=== PATIENT | female | born 1955 | race Caucasian/White ===

== ENCOUNTER → 2025-01-29 | Outpatient (CLI) | payer SELFPAY | END | disposition home or self-care (01) | PROVIDERS: Referring Provider Nurse Practitioner Family; Visit Provider Nurse Practitioner Family | DX: Z78.0 Asymptomatic menopausal state (principal) | CPT/HCPCS: 87624; 88175; G0145 ==

== ENCOUNTER → 2025-02-02 | Outpatient (CLI) | payer SELFPAY, OTHER ==
--- NOTE | 2025-02-02 13:35 | US_ITS ---
PROCEDURE: PELVIC W/ TRANSVAGINAL 02/02/2025 REASON FOR EXAM: SURGICAL PLANNING TECHNIQUE: Transabdominal and transvaginal pelvic ultrasound FINDINGS: Transabdominal and transvaginal imaging The uterus measures 6.1 x 5 x 3.1 cm. 0.9 x 1 x 0.9 cm uterine fibroid noted. Endometrial stripe measures 2-4 mm. Cervix appears within limits. The right ovary is not visualized. The left ovary measures 2.5 x 2.7 x 2.4 cm and contains a couple of 3 mm and less echogenic foci possible calcification or fat. No evidence of adnexal mass. No free fluid seen. Bladder volume 72 cc. US/Pelvic w/ Transvaginal IMPRESSION: Small 1 cm uterine fibroid. The right ovary is not identified. Reading Location: [id number]
== END | disposition home or self-care (01) ==
PROVIDERS: Referring Provider Nurse Practitioner Family; Visit Provider Nurse Practitioner Family
DX: N81.4 Uterovaginal prolapse, unspecified (principal)
CPT/HCPCS: 76830; 76856

== ENCOUNTER 2025-09-14 05:16 | Day surgery (SDC) | payer SELFPAY, OTHER ==
--- NOTE | 2025-06-06 08:40 | EKG12_ITS ---
Test Reason : PREOP Blood Pressure : */* mmHG Vent. Rate : 88 BPM Atrial Rate : 88 BPM P-R Int : 148 ms QRS Dur : 80 ms QT Int : 364 ms P-R-T Axes : 19 -39 18 degrees QTcB Int : 440 ms Normal sinus rhythm Left axis deviation Possible Anterior infarct , age undetermined Abnormal ECG Confirmed by Marco Antonio Chowdhury ([id number]), map editor SANDEE CONCEPCION ([id number]) on 06/06/2025 11:30:51 AM Referred By: Kaylah Chris Confirmed By: Marco Antonio Chowdhury
[2025-06-06 09:25] LABS: Hematocrit 42.9 % (37-47); Hemoglobin 14.6 g/dL (12.0-15.0); Mean Corp Hgb Conc 34.0 g/dL (32-36); Mean Corpuscular Volume 89.6 fL (81-99); Mean Platelet Vol. 10.3 fl (6.2-12.0); Platelet Count 325 K/mm3 (150-450); RBC Distribution Width CV 13.0 % (11.6-14.6); RBC Distribution Width SD 43.1 fl (35.1-43.9); Red Blood Count 4.79 M/mm3 (4.2-5.4); White Blood Count 13.9 K/mm3 (4.4-11.0)
[2025-06-06 10:18] LABS: AST(SGOT) 38 U/L (<=31); Alanine Aminotransfer ALT/SGPT 64 U/L (<=34); Albumin, Serum 4.4 g/dL (3.4-4.8); Alkaline Phosphatase 94 U/L (35-104); Anion Gap 10 (5-15); BUN 10 mg/dL (4-19); BUN/Creat Ratio 14.0 RATIO (10-20); Calcium,Total 9.4 mg/dL (7.6-11.0); Carbon Dioxide 25.5 mmol/L (21.0-32.0); Chloride 105 mmol/L (98-108); Globulin 2.3 g/dL (2.2-4.2); Glucose 100 mg/dL (70-99); Potassium 4.1 mmol/L (3.3-5.1)
[2025-06-06 11:41] LABS: Magnesium 2.3 mg/dL (1.5-2.2)
--- NOTE | 2025-06-07 09:47 | PAT.ANESEVAL ---
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 When Was Last Pacemaker Check QUESTION #4 FULL TEXT: You/Your Family Experience fever (hyperthermia) with Anesthesia Last Oral Intake Last Oral intake: Last Oral Intake NPO since Meds taken in AM with sips of water? Meds patient instructed to take am of surgery PONV PONV - owner professional engineer: PONV - owner professional engineer Female Yes 06/01/25 08:44 HX of Motion Sickness No 06/01/25 08:44 HX of N/V After Surgery Yes 06/01/25 08:44 Non-Smoker Yes 06/01/25 08:44 Duration of Surgery greater Yes 06/01/25 08:44 than 60 minutes Number of Risk Factors 4 06/01/25 08:44 PONV Score Severe Risk 06/01/25 08:44 Height & Weight Height & Weight: Anesthesia: Height & Weight Height 5 ft 05/10/25 09:56 Respiratory Assessment Respiratory Assessment - owner professional engineer: Respiratory Tract Infection Hx - owner professional engineer Hx Respiratory Tract Infection No 06/01/25 08:44 STOP Sleep Apnea STOP Sleep Apnea - owner professional engineer: STOP Sleep Apnea - owner professional engineer Hx Hypertension No 06/01/25 08:44 Hx Sleep Apnea No 06/01/25 08:44 CPAP BIPAP Do you snore loudly (louder No 06/01/25 08:44 than talking or can be heard Do you often feel tired/ No 06/01/25 08:44 fatigued/ sleepy during daytime? Has anyone observed you stop No 06/01/25 08:44 breathing during sleep? STOP Results Negative 06/01/25 08:44 QUESTION #5 FULL TEXT : Do you snore loudly (louder than talking or can be heard through closed doors)? 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 Specify any problems Hx of Preganancy in last 3 No 06/01/25 08:44 Months Nurse Filling Out Transfusion [facility] 06/01/25 08:44 & Questions: Date: 06/01/25 06/01/25 08:44 Time: 08:53 06/01/25 08:44 Patient unable to answer at this time (ie. confused, unrespo /Reproduction History /Reproductive History - owner professional engineer: /Reproductive Hx- owner professional engineer Hx Now No 06/01/25 08:44 Gestational Age (in weeks): EDC: Hx Hx Para Hx Section SAB No 05/10/25 09:56 PFSH Medical History Wears glasses Post-menopausal History of ulceration Non-smoker Cholecystitis Home Medications ?Medication ?Instructions ?Recorded ?Last Taken ?Type essential nutrients 2 ea PO DAILY 06/01/25 Unknown History gotu dana (Centella asiatica) 475 70 mg PO DAILY 06/01/25 Unknown History mg capsule hawthorn swift 360 mg capsule 360 mg PO DAILY 06/01/25 Unknown History multivitamin (Daily Multi-Vitamin 3 tab PO DAILY 06/01/25 Unknown History tablet) transfer factor 2 ea PO DAILY 06/01/25 Unknown History Allergy/AdvReac Type Severity Reaction Status Date / Time No Known Allergies Allergy Verified 05/25/25 14:46 Surgical History S/P cholecystectomy Social History adopted: No household members: spouse housing: house number of children: 7 current occupational status: unemployed pets and animals: No history of recent travel: Yes ([place]) out of state: Yes out of country: No sexually active: Yes Smoking Status: Never smoker second hand exposure: No alcohol intake: never substance use type: does not use well-balanced diet: daily or most days caffeine: Yes Type: coffee Number of servings: 2 eating out: 1-3 times/week during the past year weight has: remained stable what type of physical activity do you participate in: none dago/denominational: [facility] seatbelt use: sometimes do you feel safe at home: Yes additional social history: - [employer] Audit: Pertinent Findings Pertinent Findings EKG Perinent findings: 06/06/2025. Normal sinus rhythm. Left axis deviation. Possible anterior infarct, age undetermined. Recommendation Anesthesia Recommendation Anesthesia recommendation: OPTIMIZED for anesthesia
[2025-09-14] VITALS (17 sets, daily range): BP systolic 90–174; BP diastolic 64–94; PULSE 82–98; RESP 14–22; TEMP 36.5–37.2; O2SAT 87–100; BMI 33.6
--- OUTSIDE RECORDS SUMMARY | 2025-09-14 05:20 | XMS RPT_ITS | CCD ---
Author Organization [facility] CliniSyny Care Team Providers Care Shipwright Apprentice Name Role Phone ASHLEY VELASCO Unavailable [facility]IGH [facility] Unavailable Unavailable TOM HUTCHISON, RICKIE Sullivan Unavailable [phone] DANNY RODGERS, DELILAH Unavailable Unavailable LYNNE SUE Unavailable Unavailable Nichole Rodriguez Unavailable Unavailable Unavailable Unavailable Betsy RODGERS, Lexi Unavailable Unavailable Abdelrahman TELEVISION PICTURE TUBE REBUILDER-C, Carlotta Attending Provider Abdelrahman TELEVISION PICTURE TUBE REBUILDER-CCarlotta Referring Provider [phone] Dr. Kaylah Chris DO Attending Provider Care Physician, No Primary Primary Care Provider Unavailable Care Physician, No Primary Referring Provider Un available Dr. Dione Barnes MD Attending Provider [phone] KAMILA MOMIN Unavailable [phone] Nidia CROCKER MD Unavailable ASHLEY VELASCO Unavailable Unav ailable Care Physician, No Primary Primary Care Provider Unavailable Care Physician, No Primary Referring Provider Un available Dr. Kaylah Chris DO Attending Provider Lina Sue Unavailable Unavailable SARAH BETH MCHUGH MD Unavailable Unavail able KAMILA RODRIGUEZ Consulting Unavailable Nidia CROCKER Admitting Unavailable Nidia CROCKER Primary Care Unavailable Nidia CROCKER Attending Unavailable PROVIDER, UNKNOWN Consulting Unavailable PROVIDER, UNKNOWN Consulting Unavailable Nidia CROCKER Admitting Unavailable Nidia CROCKER Primary Care Unavailable Nidia CROCKER Attending Unavailable KAMILA RODRIGUEZ Consulting Unavailable PROVIDER, UNKNOWN Consulting Unavailable PROVIDER, UNKNOWN Consulting Unavailable NOEMI DOTY MD Unavailable Care Physician, No Primary Primary Care Unava ilable Carlotta Quick Attending Unavailable Carlotta Quick Referring Unavailable Carlotta Quick Referring Unavailable Carlotta Quick Attending Unavailable Abdelrahman, Carlotta Attending Unavailable Dione Barnes Attending Unavailable Care Physician, No Primary Referring Unava ilable Care Physician, No Primary Primary Care Unava ilable Dione Barnes Attending Unavailable Care Physician, No Primary Referring Unava ilable Care Physician, No Primary Primary Care Unava ilable Kaylah Chris Attending Unavailabl e Care Physician, No Primary Referring Unava ilable Care Physician, No Primary Primary Care Unava ilable Care Physician, No Primary Primary Care Unava ilable Kaylah Chris Attending Unavailabl e Care Physician, No Primary Referring Unava ilable Care Physician, No Primary Primary Care Unava ilable Kaylah Chris Attending Unavailabl e Kaylah Chris Referring Unavailabl e Medications Current Medications Medication Drug Class(es) Dates Sig (Normalized) Sig (Original) essential nutrients (1 source) Start: 06-01-2025 essential nutrients Active 2 NMA PO DAILY June 01, 2025 12:00am Gotu Dana Extract (1 source) Start: 06-01-2025 take 1 capsule by mouth once daily Gotu Dana (Centella Asiatica) 475 mg capsule Active 70 mg PO DAILY June 01, 2025 12:00am HAWTHORN [place]ST[place] EXTRACT (1 source) Start: 06-01-2025 take 1 capsule by mouth once daily [place] 360 mg capsule Active 360 mg PO DAILY June 01, 2025 12:00am Multivitamin (Daily Multi-Vitamin) tablet (1 source) Start: 06-01-2025 Multivitamin (Daily Multi-Vitamin) tablet Active 3 {tbl} PO DAILY June 01, 2025 12:00am transfer factor (1 source) Start: 06-01-2025 transfer factor Active 2 NMA PO DAILY June 01, 2025 12:00am Completed/Discontinued Medications Medication Drug Class(es) Dates Sig (Normalized) Sig (Original) amoxicillin 500 mg oral tablet (20 sources) Penicillin-class Antibacterial Start: 06-27-2011 End: 07-04-2011 take 1 tablet by mouth three times daily AMOXICILLIN, 500MG (Oral Tablet) ; 1 (one) Tablet three times daily for 7 days Quantity: 21 {Tablet} Refills: 0 Ordered: 29-Jul-2011 MD HAILEE HERNANDEZ Start: 27-Jun-2011 End: 04-Jul-2011 Status: Inactive Comments: meds to be dispensed in office Comment on above: meds to be dispensed in office amoxicillin 875 mg / clavulanate 125 mg oral tablet (20 sources) Penicillin-class Antibacterial Start: 02-16-2024 End: 02-26-2024 amoxicillin 875 mg-potassium clavulanate 125 mg tablet ; 1 (one) tablet two times daily for 10 days Quantity: 20 {Tablet} Refills: 0 Ordered: 01-Mar-2024 FÉLIX MARX Start: 16-Feb-2024 End: 26-Feb-2024 Status: Inactive azithromycin 250 mg oral tablet (20 sources) Macrolide Antimicrobial Start: 09-18-2021 End: 09-23-2021 Azithromycin 250 MG Oral Tablet ; 2 (two) Tablets on day one then 1 daily for 4 days for 5 days Quantity: 6 {Tablet} Refills: 0 Ordered: 16-Feb-2024 FÉLIX MARX Start: 18-Sep-2021 End: 23-Sep-2021 Status: Inactive Comments: medication to be dispensed in office Comment on above: medication to be dis pensed in office natural vitamins (5 sources) Start: 01-29-2025 End: 06-01-2025 natural vitamins Discontinued PO January 29, 2025 12:00am June 01, 2025 8:35am Start: 01-29-2025 natural vitami ns Active PO January 29, 2025 12:00am omeprazole 40 mg delayed release oral capsule (20 sources) Proton Pump Inhibitor Start: 04-17-2024 End: 06-13-2025 omeprazole 40 mg capsule,delayed release ; 1 (one) capsule daily for 30 days Quantity: 30 {Capsule} Refills: 1 Ordered: 13-Jun-2025 Lina Sue Start: 17-Apr-2024 End: 13-Jun-2025 Status: Inactive Start: 03-02-2024 omeprazole 40 mg capsule,delayed release ; 1 (one) capsule daily for 30 days Quantity: 30 {Capsule} Refills: 1 Ordered: 02-Mar-2024 FÉLIX MARX Start: 02-Mar-2024 Problems Active Problems Problem Classification Problem Date Documented Date Episodic/Chronic Abdominal pain (20 sources) Epigastric pain; Translations: [Epigastric pain] 03-02-2024 Episodic Administrative/social admission (20 sources) Patient encounter status; Translations: [Counseling, unspecified] 03-02-2024 Episodic Diabetes mellitus without complication (20 sources) Increased glucose level; Translations: [Other abnormal glucose] 06-13-2025 Episodic Diseases of white blood cells (20 sources) White blood cell count abnormal; 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 Mchugh; monitor only for now 06/2025 Genitourinary symptoms and ill-defined conditions (2 sources) Nocturia; Translations: [Nocturia] 06-07-2025 Episodic Immunizations and screening for infectious disease (20 sources) Need for prophylactic vaccination and inoculation against hexqmjenzq-jzomjbz-r ertussis, combined [DTP] [DTaP] 09-18-2021 Episodic Menopausal disorders (2 sources) Atrophy of vagina; Translations: [Postmenopausal atrophic vaginitis] 06-07-2025 Chronic Other screening for suspected conditions (not mental disorders or infectious disease) (20 sources) Cancer cervix screening status; Translations: [Encounter for screening for malignant neoplasm of cervix] Onset: 07-31-2025 01-29-2025 Episodic Comment on above: Age indeterminate an terior [place]; leftward axis; Other skin disorders (20 sources) Other abnormal granulation tissue 06-27-2011 Episodic Other upper respiratory disease (20 sources) Nasal sinus problem; Translations: [Other specified disorders of nose and nasal sinuses] 09-18-2021 Episodic Other upper respiratory infections (20 sources) Acute bacterial sinusitis; Translations: [Acute sinusitis, unspecified] 02-16-2024 Episodic Pneumonia (except that caused by tuberculosis or sexually transmitted disease) (20 sources) Community acquired pneumonia; Translations: [Pneumonia, unspecified organism] 09-18-2021 Episodic Prolapse of female genital organs (20 sources) Rectocele co-occurrent with complete uterovaginal prolapse; Translations: [Uterovaginal prolapse, unspecified] Onset: 05-28-2025 01-29-2025 Chronic Comment on above: Stage 4 Skin and subcutaneous tissue infections (20 sources) Cellulitis and abscess of unspecified digit 06-27-2011 Episodic Urinary tract infections (2 sources) Urinary tract infectious disease; Translations: [Urinary tract infection, site not specified] Onset: 06-11-2025 06-11-2025 Episodic Past or Other Problems Problem Classification Problem Date Documented Da te Episodic/Chronic Headache; including migraine (20 sources) Headache; including migraine 09-18-2021 Residual codes; unclassified (1 source) Asymptomatic menopausal state; Translations: [Asymptomatic menopausal state] Onset: 01-31-2025 Episodic Unclassified (20 sources) Cough - The onset of the cough has been gradual and has been occurring for 4 weeks. Note for Cough: Initially pt had sinus issues and dry cough. Fever for few days, none since. Now cough is deep and productive of nonpurulent sputum. Pt feels SOB w/ exertion. 02-16-2024 Unclassified (20 sources) LACERATION - The injury occurred on - Date: about 3 weeks ago. The occurrence was sudden following an incident at home . It is located on the fingers. There is also pain, redness and swelling . Note for LACERATION : . 06-27-2011 Unclassified (20 sources) Abdominal Pain, Female - Note for Abdominal pain: Pt was seen 02/16/24 and treated with Augmentin for sinusitis. Pt is better, but still coughing. She started with abd pain 5 days ago. The pain is a cramping/spasms in the upper middle abd. She had nausea and vomited once. Denies diarrhea, but stools are loose. Decreased appetite. Pain is worse after eating. Pt has chills and gets hot and cold. 03-02-2024 Unclassified (20 sources) !Patient notification of lab results - FÉLIX Torres. The test(s) that you had done were/was blood work. Your tests were not to goal You should call our office to schedule an appointment for repeat lab in 2 weeks. Please follow up as scheduled and let us know if your symptoms do not improve. Note for !Patient notification of lab results : Your labs did not show pancreatitis but they did show elevated white blood cells. This can come from inflammation, infection, and increased stress. We should recheck this in a few weeks to make sure this normalizes. Please let me know if you aren't feeling better. Thanks! 03-03-2024 Unclassified (17 sources) Pre-Op Visit - The procedure scheduled is a total vaginal hysterectomy and bilateral salpingo-oophorecto my on 06/15/25. The surgeon for the procedure will be Kaylah Chris. The chief complaint is uterine prolapse. 06-13-2025 Unclassified (11 sources) !Patient notification of lab results - Dr. Crocker. The test(s) that you had done were/was blood work (The white blood cell count was still elevated at 13.6. These are cells that help fight infections. Since this is staying persistently elevated, I would like to get you an appointment with a blood specialist (top dyeing machine loader) in [place]. Please call to let us know if we may proceed. This will need to be completed before you are cleared for surgery.). You should call our office if you have any questions. 06-25-2025 Unclassified (7 sources) !Patient notification of lab results - Dr. Crocker. The test(s) that you had done were/was an ultrasound of the heart. This was essentially normal with only some minor leaking at 2 of the valves which is not uncommon at your age. You should call our office if you have any questions. 06-26-2025 Results Test Name Value Interpretation Reference Range Facility CBC + DIFFon 06-25-2025 ATY LYMP 4 % Normal [facility] [place] [place] Work Phone: Comment on above: Performed By: #### 2 [id number] #### [facility],[address] [place] [address] BANDS 0 % Normal 0 - 5 % [facility] [place] [place] Work Phone: Comment on above: Performed By: #### 2 [id number] #### [facility],[address] [place] [address]60 Baso # 0.07 x10EE3/UL Normal 0.00 - 0.10 [facility] Comment on above: Performed By: #### 2 [id number] #### [facility],[address] [place] [address]182 Basophils/100 WBC (Bld) 0.5 % Normal 0.0 - 2.0 % [facility] Work Phone: Comment on above: Performed By: #### 2 [id number] #### [facility],[address] [place] [address] CBC + DIFF Normal [facility] Comment on above: Result Comment: CBC- COMPLETE BLOOD COUNT Performed By: #### 2 [id number] #### [address] [address] CELL COUNT 100 Normal [facility] Work Phone: Comment on above: Performed By: #### 2 13525 #### [facility],[address] [place] [address]53 EO 2.0 % Normal 0.0 - 7.0 % [facility] Work Phone: Comment on above: Performed By: #### 2 47777 #### [facility],[address] [place] [address] EO # 0.37 x10EE3/UL Normal 0.00 - 0.50 [facility] Comment on above: Performed By: #### 2 69349 #### [facility],[address] [place] [address]1111 Eosinophils/100 WBC (Bld) 2.8 % Normal 0.0 - 7.0 % [facility] [place] Work Phone: Comment on above: Performed By: #### 2 [id number] #### [place] [id number] Erythrocyte distribution width (RBC) [Ratio] 13.0 % Normal 12.0 - 15.6 % [facility] Work Phone: Comment on above: Performed By: #### 2 68285 #### [place] [id number] Hematocrit (Bld) [Volume fraction] 43.0 % Normal 34.0 - 46.0 % [facility], [facility].; [facility] [place] Work Phone: Comment on above: Performed By: #### 2 89251 #### [place] [phone] Hemoglobin (Bld) [Mass/Vol] 14.6 g/dL Normal 12.0 - 16.0 g/dL [facility] [place] Work Phone: Comment on above: Performed By: #### 2 84768 #### [address] [address] Lymph # 7.91 x10EE3/UL High 0.80 - 2.80 [facility] Comment on above: Performed By: #### 2 45735 #### [address] [address] Lymphocytes/100 WBC (Bld) 58.3 % Abnormal 20.0 - 45.0 % [facility], [facility].; [facility] [place] Work Phone: Comment on above: Performed By: #### 2 15425 #### [place] [phone] Lymphocytes/100 WBC (Bld) 59 % Abnormal 20 - 45 % [facility], [facility].; [facility] [place] Work Phone: Comment on above: Performed By: #### 2 79488 #### [facility],[address] [place] [address] MANUAL DIFF SEE BELOW Normal [facility].; [facility] [place] Work Phone: Comment on above: Performed By: #### 2 29020 #### [facility],[address] [place] [address] MCH (RBC) [Entitic mass] 30 pg Normal 27 - 33 pg [facility], [facility].; [facility] [place] Work Phone: Comment on above: Performed By: #### 2 77547 #### [facility],[address] [place] [address] MCHC 34 X10 3 Normal 32 - 36 [facility] Comment on above: Performed By: #### 2 55787 #### [facility],[address] [place] [address] MCV (RBC) [Entitic vol] 88 fL Normal 80 - 99 fL [facility].; [facility] [place] Work Phone: Comment on above: Performed By: #### 2 02103 #### [facility],[address] [place] [address] [place] # 0.90 x10EE3/UL Normal 0.20 - 1.00 [facility] Comment on above: Performed By: #### 2 52665 #### [facility],[address] [place] [address] MONOS 7 % Normal 0 - 10 % [facility] Work Phone: Comment on above: Performed By: #### 2 85282 #### [facility],[address] [place] [address] MONOS % 6.7 % Normal 0.0 - 10.0 [facility] Comment on above: Performed By: #### 2 01891 #### [facility],[address] [place] [address] Morphology Denis (Bld) [Interp] NORMAL Normal [facility]; [facility] Work Phone: Comment on above: Performed By: #### 2 72981 #### [facility],[address] [place] [address] Neut # 4.32 x10EE3/UL Normal 1.50 - 7.10 [facility] Comment on above: Performed By: #### 2 53374 #### [facility],[address] [place] [address]249 Neutrophils/100 WBC (Bld) 31.8 % Abnormal 46.0 - 76.0 % [facility]; [facility] Work Phone: Comment on above: Performed By: #### 2 98588 #### [facility],[address] [place] [address] PLATELET 332 x10EE3/UL Normal 150 - 450 [facility] Comment on above: Performed By: #### 2 12710 #### [address] [address] Platelet mean volume (Bld) [Entitic vol] 8.7 fL Normal 6.6 - 10.5 fL [facility]; [facility] Work Phone: Comment on above: Result Comment: AUTO MATED DIFFERENTIAL Performed By: #### 2 99934 #### [facility],[address] [place] [address]649 RBC 4.88 x 10EE6/UL Normal 4.10 - 5.30 [facility] Comment on above: Performed By: #### 2 82438 #### [facility],[address] [place] [address] SEGS 28 % Abnormal 46 - 76 % [facility]; [facility] Work Phone: Comment on above: Performed By: #### 2 81847 #### [facility],[address] [place] [address]198 WBC 13.6 x 10EE3/UL High 4.5 - 10.8 [facility] Comment on above: Performed By: #### 2 96886 #### [facility],[address] [place] [address] CMP with eGFRon 06-25-2025 AGE 69 years Normal [facility] Comment on above: Performed By: #### 2 46568 #### [facility],[address] [place] [address] Albumin [Mass/Vol] 3.6 g/dL Normal 3.4 - 5.0 g/dL [facility]; [facility] Work Phone: Comment on above: Performed By: #### 2 02541 #### [facility],[address] [place] [address] Albumin/Globulin [Mass ratio] 1.3 {ratio} Normal 0.9 - 1.6 [facility] Comment on above: Performed By: #### 2 36333 #### [facility],[address] [place] [address] ALK PHOS 94 U/L Normal 46 - 116 U/L [facility]. Work Phone: Comment on above: Performed By: #### 2 90259 #### [facility],[address] [place] [address] ALT [Catalytic activity/Vol] 67 U/L Abnormal 16 - 63 U/L [facility]; [facility] [place] Work Phone: Comment on above: Performed By: #### 2 19118 #### [facility],[address] [place] [address] Anion gap [Moles/Vol] 8 mmol/L Abnormal 10 - 2 0 mmol/L [facility]; [facility], [facility]. Work Phone: Comment on above: Performed By: #### 2 04330 #### [address] [address] AST [Catalytic activity/Vol] 30 U/L Normal 13 - 39 U/L [facility].; [facility] [place] Work Phone: Comment on above: Performed By: #### 2 32884 #### [address] [address] B/C RATIO 13 ratio Normal 0 - 30 [facility] Comment on above: Performed By: #### 2 44157 #### [facility],[address] [place] [address] Bilirubin [Mass/Vol] 0.5 mg/dL Normal 0.2 - 1 .0 mg/dL [facility]. Work Phone: Comment on above: Performed By: #### 2 08552 #### [address] [address] Calcium [Mass/Vol] 8.5 mg/dL Normal 8.5 - 10. 1 mg/dL [facility]. Work Phone: Comment on above: Performed By: #### 2 25759 #### [facility],[address] [place] [address] Chloride [Moles/Vol] 105 mmol/L Normal 98 - 10 7 mmol/L [facility] [place] Work Phone: Comment on above: Performed By: #### 2 65627 #### [facility],[address] [place] [address] CMP with eGFR Normal [facility] Comment on above: Result Comment: COMP REHENSIVE METABOLIC PANEL Performed By: #### 2 68982 #### [address] [address] CO2 [Moles/Vol] 29.6 mmol/L Normal 21.0 - 32.0 mmol/L [facility] [place] Work Phone: Comment on above: Performed By: #### 2 36019 #### [facility],[address] [place] [address] Creatinine [Mass/Vol] 0.71 mg/dL Normal 0.55 - 1.02 mg/dL [facility] Work Phone: Comment on above: Performed By: #### 2 97152 #### [address] [address] GFR/1.73 sq M.predicted among non-blacks MDRD (S/P/Bld) [Vol rate/Area] mL/min/{1.73_m2} Normal 60 - 999 [facility] Comment on above: Performed By: #### 2 22025 #### Saravanan Pomerene [place] [id number] Result Comment: ACCO RDING TO THE NATIONAL KIDNEY DISEASE EDUCATION PROGRAM(NKDE), A NORMAL eGFR IS A VALUE GREATER THAN OR EQUAL TO 60 ML/MIN/1.73 SQ METERS. CHRONIC KIDNEY DISEASE: <60mL/MIN/1.73 SQ METERS KIDNEY FAILURE: <15mL/MIN/1.73 SQ METERS THIS TEST SHOULD ONLY BE USED FOR PATIENTS 18 YEARS OF AGE AND OLDER. Globulin (S) [Mass/Vol] 2.8 g/dL Normal 1.5 - 3.8 g/dL [facility]. Work Phone: Comment on above: Performed By: #### 2 02289 #### [place] [id number] Glucose [Mass/Vol] 93 mg/dL Normal 74 - 106 mg/dL [facility]. Work Phone: Comment on above: Performed By: #### 2 78916 #### [address] [address] Potassium [Moles/Vol] 4.0 mmol/L Normal 3.5 - 5.1 mmol/L [facility]; [facility]. Work Phone: Comment on above: Performed By: #### 2 91569 #### [address] [address] Protein [Mass/Vol] 6.4 g/dL Normal 6.4 - 8.2 g/dL [facility]. Work Phone: Comment on above: Performed By: #### 2 53902 #### [address] [address] Sodium [Moles/Vol] 139 mmol/L Normal 136 - 145 mmol/L [facility]; [facility]. Work Phone: Comment on above: Performed By: #### 2 53513 #### [facility],[address] [place], [place] [id number] Urea nitrogen [Mass/Vol] 9 mg/dL Normal 7 - 18 mg/dL [facility]; [facility] Work Phone: Comment on above: Performed By: #### 2 [id number] #### [facility],[address] [place], [place] [id number] HEMOGLOBIN A1C (POM)on 06-25 Glucose [Mass/Vol] 122.6 mg/dL High 0.0 - 0.0 [facility] Comment on above: Result Comment: Do HEMOGLOBIN A1C REFERENCE RANGESBLDo Suggested Diagnosis HbA1c(%) HbA1C (mmol/mol Diabetic >/=6.5 >/=48 Prediabetes 5.7 - 6.4 39 - 47 Normal <5.7 <39 Performed By: #### 2 [id number] #### [facility],[address] [place] [id number] HbA1c (Bld) [Mass fraction] 5.9 % Normal 0.0 - 6.5 % [facility]; [facility]. Work Phone: Comment on above: Performed By: #### 2 [id number] #### [address] [address] Laboratory - Chemistry and C hemistry - challengeon 06-25-2025 Albumin [Mass/Vol] 1.3 g/dL Normal 0.9 - 1.6 [facility]; [facility] Work Phone: Average glucose Estimated from glycated hemoglobin (Bld) [Mass/Vol] 122.6 mg/dL Abnormal 0.0 - 0.0 mg/dL [facility]; [facility] Work Phone: GFR/1.73 sq M.predicted among blacks MDRD (S/P/Bld) [Vol rate/Area] mL/min/{1.73_m2} Normal 60 - 999 {ML/MINUTE} [facility]; [facility] Work Phone: GFR/1.73 sq M.predicted MDRD (S/P/Bld) [Vol rate/Area] mL/min/{1.73_m2} Normal 60 - 999 {ML/MINUTE} [facility]; [facility] Work Phone: Urea nitrogen/Creatinine [Mass ratio] 13 {ratio} Normal 0 - 30 {ratio} [facility]; [facility] Work Phone: Laboratory - Hematology and Cell countson 06-25-2025 Basophils (Bld) [#/Vol] 0.07 {x10EE3/UL} Normal 0.00 - 0.10 {x10EE3/UL} [facility]; [facility] Work Phone: Eosinophils (Bld) [#/Vol] 0.37 {x10EE3/UL} Normal 0.00 - 0.50 {x10EE3/UL} [facility]; [facility] Work Phone: Lymphocytes (Bld) [#/Vol] 7.91 {x10EE3/UL} Abnormal 0.80 - 2.80 {x10EE3/UL} [facility]; [facility] Work Phone: MCHC (RBC) [Mass/Vol] 34 {X10_3} Normal 32 - 3 6 {X10_3} [facility]; [facility]. Work Phone: Monocytes (Bld) [#/Vol] 0.90 {x10EE3/UL} Normal 0.20 - 1.00 {x10EE3/UL} [facility].; [facility]. Work Phone: Monocytes/100 WBC (Bld) 6.7 % Normal 0.0 - 10.0 % [facility].; [facility]. Work Phone: Neutrophils (Bld) [#/Vol] 4.32 {x10EE3/UL} Normal 1.50 - 7.10 {x10EE3/UL} [facility].; [facility]. Work Phone: Platelets (Bld) [#/Vol] 332 {x10EE3/UL} Normal 150 - 450 {x10EE3/UL} [facility]. Work Phone: RBC (Bld) [#/Vol] 4.88 {x_10EE6/UL} Normal 4.10 - 5.30 {x_10EE6/UL} [facility].; [facility]. Work Phone: WBC (Bld) [#/Vol] 13.6 {x_10EE3/UL} Abnormal 4.5 - 10.8 {x_10EE3/UL} [facility]. Work Phone: No Panel Informationon 06-25 AGE 69 {years} Normal [facility].; [facility] Work Phone: CBC + DIFF Normal [facility]; [facility] Work Phone: CMP with eGFR Normal [facility]; [facility] Work Phone: [facility] 06-25-[address] ? [place] [address] ? Patient: ANA PAULA [place] Phone#: : 1955 Age: 69 Gender: F Pt. Type: Out Account: [id number] Location: Ordering: HAILEE CROCKER Exam Date: 06/25/2025/8:06 Family Phys: KAMILA RODRIGUEZ Charge Code: 886330 Physician: Starr Order #: [id number] Dose#: PROCEDURE: ABDOMEN COMPLETE ULTRASOUND COMPARISON: None. INDICATIONS: Elevated liver function test. TECHNIQUE: High resolution sonographic examination was performed of the abdomen. FINDINGS: LIVER: Liver is diffusely increased in echogenicity, nonspecific but most often associate with diffuse fatty infiltration of the liver but may also be seen with fibrosis. Parenchymal changes limit evaluation for focal lesion, though none identified. BILIARY: Gallbladder is absent. Common bile duct measures 0.6 cm PANCREAS: Visualized portion is unremarkable SPLEEN: Normal. Normal size and echotexture. Spleen measures 9.5 x 5.8 x 7.5 cm. KIDNEYS: Normal renal parenchymal echogenicity. No hydronephrosis. Left kidney measures 9.9 x 6.9 x 5.2 cm. Right kidney measures 10.0 x 5.2 x 4.4 cm AORTA/VASCULAR: Normal. No aneurysm. Proximal aorta: 2.3 x 2.7 cm Mid aorta: 2.0 x 1.7 cm Distal aorta: 1.8 x 2.0 cm OTHER: Negative. CONCLUSION: 1. Probable fatty infiltration of the liver Dictated by: Alix Jaimes MD on 06/25/2025 at 10:59 Approved by: Alix Jaimes MD on 06/25/2025 at 11:11 Normal [facility] MR/BMS.[facility] 06-11-2025 MR/BMS.[facility] [address], [address] [place] [address] OFFICE VISIT Date of Service: 06/11/25 MR#: [id number] Acct: [id number] Name: ANA PAULA [place] Rep #: [id number] : 1955 Provider: Dr. Dione Peña i, MD Age/Sex: 69/F [facility] Status: Signed Intake Vital Signs 05/25/25 13:16 05/25/25 14:49 06/11/25 11:28 Height 5 ft 5 ft 5 ft Weight: 170 lb BMI 33.2 BP 134/84 H Pulse 68 Temp 97.9 F Intake Visit Reasons: 2HR UDS Chief Complaint: 2HR UDS Language Arts Teacher Required: No Is patient in pain?: No Allergies No Known Allergies Allergy (Verified 05/25/25 14:46) Medications ???Medication ???Instructions ???Recorded ???Confirmed ???Type essential nutrients 2 ea PO DAILY 06/01/25 06/11/25 Hi story gotu dana (Centella asiatica) 475 70 mg PO DAILY 06/01/25 06/11/25 History mg capsule hawthorn weston 360 mg capsule 360 mg PO DAILY 06/01/25 06/11/25 History multivitamin (Daily Multi-Vitamin 3 tab PO DAILY 06/01/25 06/11/25 History tablet) transfer factor 2 ea PO DAILY 06/01/25 06/11/25 Hi story Have you fallen in the past year?: No PFSH Medical History Rectocele Nocturia Vaginal atrophy Wears glasses Post-menopausal History of ulceration Non-smoker Cholecystitis Surgical History S/P cholecystectomy Social History adopted: No household members: spouse housing: house number of children: 7 current occupational status: unemployed pets and animals: No history of recent travel: Yes ([place]) out of state: Yes out of country: No sexually active: Yes Smoking Status: Never smoker second hand exposure: No alcohol intake: never substance use type: does not use well-balanced diet: daily or most days caffeine: Yes Type: coffee Number of servings: 2 eating out: 1-3 times/week during the past year weight has: remained stable what type of physical activity do you participate in: none dago/pentecostalism: Spiritism seatbelt use: sometimes do you feel safe at home: Yes additional social history: - Scooter JR HPI HPI Urology Chief Complaint: 2HR UDS Details: ANA PAULA [place], is a 69 F. There is no sensation of infection today including dysuria or hematuria. The procedure was explained and questions were answered. She agreed to proceed. ROS Const Constitutional: No chills, fatigue, fever(s), headache(s), night sweats, weakness, weight change, abnormal sleep pattern or change in appetite Eyes Eyes: No change in vision ENT ENT: No headache(s) or dry mouth Resp Respiratory: No cough, chest congestion, shortness of breath or wheezing Cardio Cardiology: Positive for other (No chest pain.); No shortness of breath, irregular heart rhythm or lightheadedness Gastro GI: Positive for other (No nausea.); No abdominal pain, change in bowel habits, constipation, diarrhea or vomiting Musc Musculoskeletal: No abnormal gait Skin Skin: No yellowing of the eye, lesions, itchy eyes, rash or skin ulcer Neuro Neurology: No abnormal gait, confusion, dizziness, weakness, headache(s) or memory loss Psych Psychiatric: No abnormal sleep pattern, No change in appetite, No confusion and No memory loss Endo Endocrine: No fatigue, increased thirst/drinking or weight change Aller/Imm Allergy/Immunologic: No itchy eyes or wheezing Travon/Lymp Hematologic/Lymphatic: No easy bleeding, easy bruising or enlarged lymph nodes Exam Const General: cooperative, healthy appearing, comfortable and no acute distress [facility] Head: normocephalic and atraumatic Ears: hearing grossly normal bilaterally and external ears normal Nose: external nose normal Eyes General: appearance normal, both eyes and all related structures Neck Neck: normal visual inspection and trachea midline Chest Chest palpation inspection: normal inspection of the chest Resp Effort Inspection: normal respiratory effort, able to speak in complete sentences and symmetric chest movement Cardio Rate: regular rate GI Inspection: normal to inspection Palpation: soft and nontender General: No CVA tenderness Speculum Exam - Vagina: vagina atrophic Pelvic Support: other (complete uterine prolapse with cystocele and rectocele.) Other: Complex CMG with voiding pressure study, urethral pressure profile, EMG were completed. Pressure measuring catheters were placed in the patient's urethra and the rectum without an issue. EMG electrodes were placed on the patient's perineum. The bladder was filled with sterile saline in the systematic fashion. She was intermittently asked to valsalva and cough. The subjective response and objective measurements were recorded. (more content not included)... Normal [facility] MR/PAT.ANEon 06-07-2025 MR/PAT.[facility] Medical Records Department [address] [place] [address] PAT - Anesthesia 06/07/2547 MR#: [id number] Acct: [id number] Name: ANA PAULA [place] Rep #: [id number] : 1955 69 From: Modesto Henson MD PCP: Care Physician,No Primary Status:[place] [facility] [place] Race: C [place] [facility] Pre-Assessment Diagnosis/Proposed Procedure Planned Operative Procedure(s): (B) ERAS, Hysterectomy,Total Vaginal, Bilateral Salpingo- oophorectomy (B) ANTERIOR/POSTERIOR REPAIR, SSLF W/DERMIS, POSSIBLE SLING, CYSTO URETERAL CATHETERIZATION Anesthesia History 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 When Was Last Pacemaker Check QUESTION #4 FULL TEXT: You/Your Family Experience fever (hyperthermia) with Anesthesia Last Oral Intake Last Oral intake: Last Oral Intake NPO since Meds taken in AM with sips of water? Meds patient instructed to take am of surgery PONV PONV - interior design assistant: PONV - interior design assistant Female Yes 06/01/25 08:44 HX of Motion Sickness No 06/01/25 08:44 HX of N/V After Surgery Yes 06/01/25 08:44 Non-Smoker Yes 06/01/25 08:44 Duration of Surgery greater Yes 06/01/25 08:44 than 60 minutes Number of Risk Factors 4 06/01/25 08:44 PONV Score Severe Risk 06/01/25 08:44 Height Weight Height Weight: Anesthesia: Height Weight Height 5 ft 05/10/25 09:56 Respiratory Assessment Respiratory Assessment - interior design assistant: Respiratory Tract Infection Hx - interior design assistant Hx Respiratory Tract Infection No 06/01/25 08:44 STOP Sleep Apnea STOP Sleep Apnea - interior design assistant: STOP Sleep Apnea - interior design assistant Hx Hypertension No 06/01/25 08:44 Hx Sleep Apnea No 06/01/25 08:44 CPAP BIPAP Do you snore loudly (louder No 06/01/25 08:44 than talking or can be heard Do you often feel tired/ No 06/01/25 08:44 fatigued/ sleepy during daytime? Has anyone observed you stop No 06/01/25 08:44 breathing during sleep? STOP Results Negative 06/01/25 08:44 QUESTION #5 FULL TEXT : Do you snore loudly (louder than talking or can be heard through closed doors)? 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 Specify any problems Hx of Preganancy in last 3 No 06/01/25 08:44 Months Nurse Filling Out Transfusion [place] 06/01/25 08:44 Questions: Date: 06/01/25 06/01/25 08:44 Time: 08:53 06/01/25 08:44 Patient unable to answer at this time (ie. confused, unrespo /Reproduction History /Reproductive History - interior design assistant: /Reproductive Hx- interior design assistant Hx Now No 06/01/25 08:44 Gestational Age (in weeks): EDC: Hx Hx Para Hx Section SAB No 05/10/25 09:56 PFSH Medical History Wears glasses Post-menopausal History of ulceration Non-smoker Cholecystitis Home Medications ???Medication ???Instructions ???Recorded ???Last Taken ???Type essential nutrients 2 ea PO DAILY 06/01/25 Unknown His tory gotu dana (Centella asiatica) 475 70 mg PO DAILY 06/01/25 Unknown H istory mg capsule hawthorn weston 360 mg capsule 360 mg PO DAILY 06/01/25 Unknown H istory multivitamin (Daily Multi-Vitamin 3 tab PO DAILY 06/01/25 Unknown H istory tablet) transfer factor 2 ea PO DAILY 06/01/25 Unknown His tory Allergy/AdvReac Type Severity Reaction Status Date / Time No Known Allergies Allergy Verified 05/25/25 14:46 Surgical History S/P cholecystectomy Soc (more content not included)... Normal [facility] 12 Lead EKGon 06-06-2025 12 Lead EKG [facility] Cardiovascular Services [address] [place] [address] 12 Lead EKG 06/06/25 0850 MR#: [id number] Acct: [id number] Name: ANA PAULA [place] Rep #: [id number] : 1955 69 From: Marco Antonio Chowdhury MD Attending Dr: Dr. Kaylah Chris DO Statu s: PRE SDC Ordering Dr: Kaylah Chris DO Date: 5 [place] [facility] Sex: F C Admitted: Test Reason : PREOP Blood Pressure : */* mmHG Vent. Rate : 88 BPM Atrial Rate : 88 BPM P-R Int : 148 ms QRS Dur : 80 ms QT Int : 364 ms P-R-T Axes : 19 -39 18 degrees QTcB Int : 440 ms Normal sinus rhythm Left axis deviation Possible Anterior infarct , age undetermined Abnormal ECG Confirmed by Marco Antonio Chowdhury ([id number]), social media editor SANDEE CONCEPCION ([id number]) on 06/06/2025 11:30:51 AM Referred By: Kaylah Chris Confirmed By: Marco Antonio Chowdhury 06/06/25 1130 Date Marco Antonio Chowdhury MD CC: Dr. Kaylah Chris, DO; No Primary Care Physician Signed Normal [facility] CBC-Complete Blood Cnt No Di ffon 06-06-2025 Erythrocyte distribution width (RBC) [Ratio] 13.0 % Normal 11.6-14.6 [facility] Comment on above: Performed By: #### B TSPAT, L500.4050, L100.0500 #### [facility] [address] [place], [address] Hematocrit (Bld) [Volume fraction] 42.9 % Normal 37-47 [facility] Comment on above: Performed By: #### B TSPAT, L500.4050, L100.0500 #### [facility] [address] [place], [address] Hemoglobin (Bld) [Mass/Vol] 14.6 g/dL Normal 12.0-15.0 [facility] Comment on above: Performed By: #### B TSPAT, L500.4050, L100.0500 #### [facility] [address] [place], [address] MCH (RBC) [Entitic mass] 30.5 pg Normal 27.0-32.0 [facility] Comment on above: Performed By: #### B TSPAT, L500.4050, L100.0500 #### [facility] [address] [place], [address] MCHC (RBC) [Mass/Vol] 34.0 g/dL Normal 32-36 [facility] Comment on above: Performed By: #### B TSPAT, L500.4050, L100.0500 #### [facility] [address] [place], [address] MCV (RBC) [Entitic vol] 89.6 fL Normal 81-99 [facility] Comment on above: Performed By: #### B TSPAT, L500.4050, L100.0500 #### [facility] [address] [place], [address] Platelet mean volume (Bld) [Entitic vol] 10.3 fL Normal 6.2-12.0 [facility] Comment on above: Performed By: #### B TSPAT, L500.4050, L100.0500 #### [facility] [address] [place], [address] Platelets (Bld) [#/Vol] 325 10*3/uL Normal 150-450 [facility] Comment on above: Performed By: #### B TSPAT, L500.4050, L100.0500 #### [facility] [address] [place], [address] RBC (Bld) [#/Vol] 4.79 10*6/uL Normal 4.2-5.4 [facility] Comment on above: Performed By: #### B TSPAT, L500.4050, L100.0500 #### [facility] [address] [place], [address] RDW SD 43.1 fl Normal 35.1-43.9 [facility] Comment on above: Performed By: #### B TSPAT, L500.4050, L100.0500 #### [facility] [address] [place], [address] WBC (Bld) [#/Vol] 13.9 10*3/uL High 4.4-11.0 [facility] Comment on above: Performed By: #### B TSPAT, L500.4050, L100.0500 #### [facility] [address] [place], [address] Comprehensive Metabolic Prof ilon 06-06-2025 Albumin [Mass/Vol] 4.4 g/dL Normal 3.4-4.8 [facility] Comment on above: Performed By: #### B TSPAT, L500.4050, L100.0500 #### [facility] [address] [place], [address] Albumin/Globulin [Mass ratio] 1.9 {ratio} Normal 0.9-2.4 [facility] Comment on above: Performed By: #### B TSPAT, L500.4050, L100.0500 #### [facility] [address] [place], [address] ALK PHOS 94 U/L Normal 35-104 [facility] Comment on above: Performed By: #### B TSPAT, L500.4050, L100.0500 #### [facility] [address] [place], [address] ALT [Catalytic activity/Vol] 64 U/L High <=34 [facility] Comment on above: Performed By: #### B TSPAT, L500.4050, L100.0500 #### [facility] [address] [place], [address] AST [Catalytic activity/Vol] 38 U/L High <=31 [facility] Comment on above: Performed By: #### B TSPAT, L500.4050, L100.0500 #### [facility] [address] [place], [address] Bilirubin [Mass/Vol] 0.46 mg/dL Normal 0.00-1.30 [facility] Comment on above: Performed By: #### B TSPAT, L500.4050, L100.0500 #### [facility] [address] [place], [address] BUN/CRE 14.0 RATIO Normal 10-20 [facility] Comment on above: Performed By: #### B TSPAT, L500.4050, L100.0500 #### [facility] [address] [place], [address] Calcium [Mass/Vol] 9.4 mg/dL Normal 7.6-11.0 [facility] Comment on above: Performed By: #### B TSPAT, L500.4050, L100.0500 #### [facility] [address] [place], [address] Chloride [Moles/Vol] 105 mmol/L Normal 98-108 [facility] Comment on above: Performed By: #### B TSPAT, L500.4050, L100.0500 #### [facility] [address] [place], [address] CO2 [Moles/Vol] 25.5 mmol/L Normal 21.0-32.0 [facility] Comment on above: Performed By: #### B TSPAT, L500.4050, L100.0500 #### [facility] [address] [place], [address] Creatinine [Mass/Vol] 0.72 mg/dL Normal 0.70-1.20 [facility] Comment on above: Performed By: #### B TSPAT, L500.4050, L100.0500 #### [facility] [address] [place], [address] GAP 10 Normal 5-15 [facility] Comment on above: Performed By: #### B TSPAT, L500.4050, L100.0500 #### [facility] [address] [place], [address] GFR/1.73 sq M.predicted among non-blacks MDRD (S/P/Bld) [Vol rate/Area] 91 mL/min/{1.73_m2} Normal >60 [facility] Comment on above: Result Comment: mL/m in/1.73m2 CKD-EPI Creatinine Equation (2020) Performed By: #### B TSPAT, L500.4050, L100.0500 #### [facility] [address] [place], [address] Globulin (S) [Mass/Vol] 2.3 g/dL Normal 2.2-4.2 [facility] Comment on above: Performed By: #### B TSPAT, L500.4050, L100.0500 #### [facility] [address] [place], [address] Glucose [Mass/Vol] 100 mg/dL High 70-99 [facility] Comment on above: Performed By: #### B TSPAT, L500.4050, L100.0500 #### [facility] [address] [place], [address] Potassium [Moles/Vol] 4.1 mmol/L Normal 3.3-5.1 [facility] Comment on above: Performed By: #### B TSPAT, L500.4050, L100.0500 #### [facility] [address] [place], [address] Sodium [Moles/Vol] 140 mmol/L Normal 133-145 [facility] Comment on above: Performed By: #### B TSPAT, L500.4050, L100.0500 #### [facility] [address] [place], [address] T PROT 6.7 g/dL Normal 5.9-8.4 [facility] Comment on above: Performed By: #### B TSPAT, L500.4050, L100.0500 #### [facility] [address] [place], [address] Urea nitrogen [Mass/Vol] 10 mg/dL Normal 4- [facility] Comment on above: Performed By: #### B TSPAT, L500.4050, L100.0500 #### [facility] [address] [place], [address] Magnesiumon 06-06-2025 Magnesium [Mass/Vol] 2.3 mg/dL High 1.5-2.2 [facility] Comment on above: Performed By: #### L 501.5200 #### [facility] [address] [place], [address] Type AND Screen - PAT ONLYon 06-06-2025 Ab SCREEN GEL Negative Normal [facility] Comment on above: Order Comment: Surge ry Date: 06/15/2590507197 No N N S Total Vaginal Hysterectomy and Bilateral Salpingo-oopho Performed By: #### B TSPAT, L500.4050, L100.0500 #### [facility] [address] [place], [address] Laboratory - Chemistry and C hemistry - challengeOrdered By: Dione Barnes on 05-25-2025 Bilirubin Ql (U) Negative [facility] Glucose Ql (U) Negative [facility] Ketones Ql (U) Negative [facility] pH (U) 6 [pH] [facility] Specific gravity (U) [Rel density] 1.020 [facility] Urobilinogen (U) [Mass/Vol] Negative [facility] - Hematology and Cell countsOrdered By: Dione Barnes on 05-25-2025 Hemoglobin Ql (U) Negative [facility] - UrinalysisOrder ed By: Dione Barnes on 05-25-2025 Nitrite Ql (U) Negative [facility] Protein Ql (U) Trace [facility] MR/Steph 05-25-2025 /RAJENDRA [facility] [address] [place] [address] OFFICE VISIT Date of Service: 05/25/25 MR#: [id number] Acct: [id number] Name: ANA PAULA [place] Rep #: [id number] : 1955 Provider: Dr. 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 Accompanied by: Self Is patient in pain?: No Allergies No Known Allergies Allergy (Verified 05/25/25 14:46) Medications ???Medication ???Instructions ???Recorded ???Confirmed ???Type essential nutrients 2 ea PO DAILY 06/01/25 06/01/25 Hi story gotu dana (Centella asiatica) 475 70 mg PO DAILY 06/01/25 06/01/25 History mg capsule hawthorn weston 360 mg capsule 360 mg PO DAILY 06/01/25 06/01/25 History multivitamin (Daily Multi-Vitamin 3 tab PO DAILY 06/01/25 06/01/25 History tablet) transfer factor 2 ea PO DAILY 06/01/25 06/01/25 Hi story Have you fallen in the past year?: No PFSH Medical History (Updated 06/07/25 @ 11:[address] Dione Barnes MD) Rectocele Nocturia Vaginal atrophy Wears glasses Post-menopausal History of ulceration Non-smoker Cholecystitis Surgical History S/P cholecystectomy Social History adopted: No household members: spouse housing: house number of children: 7 current occupational status: unemployed pets and animals: No history of recent travel: Yes ([place]) out of state: Yes out of country: No sexually active: Yes Smoking Status: Never smoker second hand exposure: No alcohol intake: never substance use type: does not use well-balanced diet: daily or most days caffeine: Yes Type: coffee Number of servings: 2 eating out: 1-3 times/week during the past year weight has: remained stable what type of physical activity do you participate in: none dago/pentecostalism: Spiritism seatbelt use: sometimes do you feel safe at home: Yes additional social history: - Scooter PIERCE HPI HPI Urology Chief Complaint: cysto and pelvic exam Details: ANA PAULA [place], is a 69 F. She is here for cystoscopy and pelvic exam in preparation for surgical intervention for prolapse scheduled for 06/15. No sensation of infection today. No hematuria. Using estrogen cream. Has an appointment today with . She is in a hurry to leave for this appointment. ROS Const Constitutional: No chills, fatigue, fever(s), headache(s), night sweats, weakness, weight change, abnormal sleep pattern or change in appetite Eyes Eyes: No change in vision ENT ENT: No headache(s) or dry mouth Resp Respiratory: No cough, chest congestion, shortness of breath or wheezing Cardio Cardiology: Positive for other (No chest pain.); No shortness of breath, irregular heart rhythm or lightheadedness Gastro GI: Positive for other (No nausea.); No abdominal pain, change in bowel habits, constipation, diarrhea or vomiting Musc Musculoskeletal: No abnormal gait Skin Skin: No yellowing of the eye, lesions, itchy eyes, rash or skin ulcer Neuro Neurology: No abnormal gait, confusion, dizziness, weakness, headache(s) or memory loss Psych Psychiatric: No abnormal sleep pattern, No change in appetite, No confusion and No memory loss Endo Endocrine: No fatigue, increased thirst/drinking or weight change Aller/Imm Allergy/Immunologic: No itchy eyes or wheezing Travon/Lymp Hematologic/Lymphatic: No easy bleeding, easy bruising or enlarged lymph nodes Exam Const General: cooperative, healthy appearing, comfortable and no acute distress [facility] Head: normocephalic and atraumatic Ears: hearing grossly normal bilaterally and external ears normal Nose: external nose normal Eyes General: appearance normal, both eyes and all related structures Neck Neck: normal visual inspection and trachea midline Chest Chest palpation inspection: normal inspection of the chest Resp Effort Inspection: normal respiratory effort, able to speak in complete sentences and symmetric chest movement Cardio Rate: regular rate GI Inspection: normal to inspection Palpation: soft and nontender General: No CVA tenderness Speculum Exam - Vagina: vagina atrophic Pelvic Support: other (complete uterine prolapse with cystocele and rectocele.) Skin General: no rashes or lesions noted Neuro General: patient alert, patient awake, patient oriented x3 and CN's II-XI intact bilaterally Extrem General: normal to inspection Psych Appearance: grossly normal and well kempt Mental (more content not included)... Normal [facility] No Panel InformationOrdered By: Dione Barnes on 05-25-2025 Urine Leukocytes Negatve [facility] Urine Non-Hemolyzed Blood Negative [facility] Health Care Recruiter Office Visit Reporton 05-25-2025 Health Care Recruiter Office Visit Report [facility] [address], [address] [place] [address] OFFICE VISIT Date of Service: 05/25/25 MR#: [id number] Acct: [id number] Name: ANA PAULA [place] Rep #: [id number] : 1955 Provider: Dr. Kaylah Ding DO Age/Sex: 69/F [place] [facility] [place]: Signed Intake Vital Signs 02/02/25 10:27 05/10/25 09:56 05/25/25 13:16 05/25/25 14:46 05/25/25 14:49 Height 5 ft 5 ft 5 ft 5 ft 5 ft Weight: 160 lb 170 lb 9 oz BMI 31.2 33.3 BP 150/79 H 168/96 H Pulse 95 Intake Visit Reasons: Hysterectomy Molly santos Language Arts Teacher Required: No Is patient in pain?: No Allergies No Known Allergies Allergy (Verified 05/25/25 14:46) Medications ???Medication ???Instructions ???Recorded ???Confirmed ???Type natural vitamins PO 01/29/25 05/25/25 History Post menopausal: No Patient : No : No [facility] Medical History Cholecystitis Surgical History S/P cholecystectomy Social History adopted: No household members: spouse housing: house number of children: 7 current occupational status: unemployed pets and animals: No history of recent travel: Yes ([place]) out of state: Yes out of country: No sexually active: Yes Smoking Status: Never smoker second hand exposure: No alcohol intake: never substance use type: does not use well-balanced diet: daily or most days caffeine: Yes Type: coffee Number of servings: 2 eating out: 1-3 times/week during the past year weight has: remained stable what type of physical activity do you participate in: none dago/pentecostalism: Spiritism seatbelt use: sometimes do you feel safe at home: Yes additional social history: - Scooter JR HPI Hysterectomy Molly santos Details: ANA PAULA [place] is a 69 year old (all vaginal deliveries) who presents for discussion about prolpase. She states that it started in 1999 after the of her last child that was 9 pounds. She has to push her self back in to completely empty her bladder and she is sick of dealing with it. She is now ready for a hysterectomy. She saw Dr. Barnes today an surgery is scheduled together on 06/15/25. Ultrasound showed: FINDINGS: Transabdominal and transvaginal imaging The uterus measures 6.1 x 5 x 3.1 cm. 0.9 x 1 x 0.9 cm uterine fibroid noted. Endometrial stripe measures 2-4 mm. Cervix appears within limits. The right ovary is not visualized. The left ovary measures 2.5 x 2.7 x 2.4 cm and contains a couple of 3 mm and less echogenic foci possible calcification or fat. No evidence of adnexal mass. No free fluid seen. Bladder volume 72 cc. US/Pelvic w/ Transvaginal IMPRESSION: Small 1 cm uterine fibroid. The right ovary is not identified. History 7 Elective abortions Hx Para Spontaneous abortions Hx # Term Pregnancies Ectopic pregnancies Hx # Pregnancies Multiple births # of living children 7 ROS Const ROS Unobtainable: All systems reviewed are unremarkable except as noted in H Resp Resp: Reports system reviewed and no additional complaints, except as documented; Denies cough GI GI: Reports as per HPI Psych Psych: Reports system reviewed and no additional complaints, except as documented Exam Const General: cooperative, healthy appearing, comfortable and no acute distress Resp Effort Inspection: normal respiratory effort Skin General: no rashes or lesions noted Psych Appearance: grossly normal Speech and Movement: speech and movement normal Results POC UA Auto w/o Microscopy Office Urine Color Last Edit by Paulina Polo on 05/25/25 13:20 Office Urine Clarity Last Edit by Paulina Polo on 05/25/25 13:20 Office Urine Glucose Negative Last Edit by Paulina Polo on 05/25/25 13:20 Office Urine Ketones Negative Last Edit by Paulina Polo on 05/25/25 13:20 Office Urine Bilirubin Negative Last Edit by Paulina Polo on 05/25/25 13:20 Office Urine Urobilinogen Negative Last Edit by Paulina Polo on 05/25/25 13:20 Off Ur Spec Phoenix 1.020 Last Edit by Paulina Polo on 05/25/25 13:20 Office Urine pH 6 Last Edit by Paulina Polo on 05/25/25 13:20 Office Urine Protein Trace Last Edit by Paulina Polo on 05/25/25 13:20 Office Urine Blood Negative Last Edit by Paulina Polo on 05/25/25 13:20 Office Urine Blood Hemolyzed Negative Last Edit by Paulina Polo on 05/25/25 13:20 Office Urine Nitrate Negative Last Edit by Paulina Polo on 05/25/25 13:20 Off Ur Leukocytes Negatve Last Edit by Paulina Polo on 05/25/25 13:20 Coding Level of Care Code Off vis,est,level 4 (more content not included)... Normal [facility] PAP IG HPV APTIMA 16/18,45on 02-05-2025 ADEQ Comment Normal . [facility] Comment on above: Order Comment: Speci men Comment: [id number] Specimen Comment: No. of containers..01 ThinPrep Vial Result Comment: Spec imen processed and examined but unsatisfactory for evaluation of epithelial abnormality because of insufficient cellularity. Performed By: #### L 7400.0280 #### [facility] [address] [place], [address] COMM . Normal . [facility] Comment on above: Order Comment: Speci men Comment: [id number] Specimen Comment: No. of containers..01 ThinPrep Vial Performed By: #### L 7400.0280 #### [facility] [address] [place], [place], [address] COMMENT TNP Normal . [facility] Comment on above: Order Comment: Speci men Comment: [id number] Specimen Comment: No. of containers..01 ThinPrep Vial Result Comment: The Thin Prep(R) Psychiatry Instructor was unable to read this specimen. Therefore a manual review was performed. Performed By: #### L 7400.0280 #### [facility] [address] [place], [address] DIAG Comment Normal . [facility] Comment on above: Order Comment: Speci men Comment: [id number] Specimen Comment: No. of containers..01 ThinPrep Vial Result Comment: UNSA TISFACTORY FOR EVALUATION. Performed By: #### L 7400.0280 #### [facility] [address] [place], [address] HPV APTIMA, HR Negative Normal Negative [facility] Comment on above: Order Comment: Speci men Comment: [id number] Specimen Comment: No. of containers..01 ThinPrep Vial Result Comment: This nucleic acid amplification test detects fourteen high- risk HPV types (16,18,31,33,35,39,45,51,52,56,58,59,66,68) without differentiation. Performed By: #### L 7400.0280 #### [facility] [address] [place], [address] HPV Ana Rosa Rfx Comment Normal . [facility] Comment on above: Order Comment: Speci men Comment: [id number] Specimen Comment: No. of containers..01 ThinPrep Vial Result Comment: Crit eria not met, HPV Genotype not performed. Performed at: - [address] [id number] Stone Trimmer: Dahlia Galvan MD, Phone: [phone] Performed at: = - [address] [id number] Stone Trimmer: Dahlia Galvan MD, Phone: [phone] Performed By: #### L 7400.0280 #### [facility] [address] [place], [place], [id number] PAPSMR Comment Normal . [facility] Comment on above: Order Comment: Speci men Comment: [id number] Specimen Comment: No. of containers..01 ThinPrep Vial Result Comment: The Pap smear is a screening test designed to aid in the detection of premalignant and malignant conditions of the uterine cervix. It is not a diagnostic procedure and should not be used as the sole means of detecting cervical cancer. Both false-positive and false-negative reports do occur. Performed By: #### L 7400.0280 #### [facility] [address] [place], [address] PERFORM Comment Normal . [facility] Comment on above: Order Comment: Speci men Comment: [id number] Specimen Comment: No. of containers..01 ThinPrep Vial Result Comment: Marsha Carvalho, Voice Over Announcer (ASCP) Performed By: #### L 7400.0280 #### [facility] [address] [place], [place], [id number] QC REV Comment Normal . [facility] Comment on above: Order Comment: Speci men Comment: [id number] Specimen Comment: No. of containers..01 ThinPrep Vial Result Comment: Aidan Jones, Voice Over Announcer (ASCP) Performed By: #### L 7400.0280 #### [facility] [address] [place], [place], [id number] RECOMM Comment Normal . [facility] Comment on above: Order Comment: Speci men Comment: [id number] Specimen Comment: No. of containers..01 ThinPrep Vial Result Comment: Sugg est follow up as clinically appropriate. Performed By: #### L 7400.0280 #### [facility] [place], [address] Health Care Recruiter Office Visit Reporton 02-02-2025 Health Care Recruiter Office Visit Report [facility] [address], [address] [place] [address] OFFICE VISIT Date of Service: 02/02/25 MR#: [id number] Acct: [id number] Name: ANA PAULA [place] Rep #: [id number] : 1955 Provider: Dr. Kaylah Ding DO Age/Sex: 69/F [place] [facility] [place]: Signed Intake Vital Signs 01/29/25 11:38 02/02/25 10:27 02/02/25 10:27 Height 5 ft 5 ft 5 ft Weight: 169 lb 168 lb 4 oz BMI 33.0 32.8 BP 154/99 H 156/112 H Intake Visit Reasons: Hysterectomy Consult Language Arts Teacher Required: No Is patient in pain?: No Allergies No Known Allergies Allergy (Verified 02/02/25 10:27) Medications ???Medication ???Instructions ???Recorded ???Confirmed ???Type natural vitamins PO 01/29/25 02/02/25 History Is last menstrual period known: No Post menopausal: Yes Patient : No : No [facility] Medical History Cholecystitis Surgical History S/P cholecystectomy Social History adopted: No household members: spouse housing: house number of children: 7 current occupational status: unemployed pets and animals: No history of recent travel: Yes ([place]) out of state: Yes out of country: No sexually active: Yes Smoking Status: Never smoker second hand exposure: No alcohol intake: never substance use type: does not use well-balanced diet: daily or most days caffeine: Yes Type: coffee Number of servings: 2 eating out: 1-3 times/week during the past year weight has: remained stable what type of physical activity do you participate in: none dago/pentecostalism: Spiritism seatbelt use: sometimes do you feel safe at home: Yes additional social history: - Scooter [facility]CE [facility] Hysterectomy Consult Details: ANA PAULA [place] is a 69 year old (all vaginal deliveries) who presents for discussion about prolpase. She states that it started in 1999 after the of her last child that was 9 pounds. She has to push her self back in to completely empty her bladder and she is sick of dealing with it. She would like to discuss treatment options. Ultrasound is scheduled today. History 7 Elective abortions Hx Para Spontaneous abortions Hx # Term Pregnancies Ectopic pregnancies Hx # Pregnancies Multiple births # of living children 7 ROS Const ROS Unobtainable: All systems reviewed are unremarkable except as noted in H Resp Resp: Reports system reviewed and no additional complaints, except as documented; Denies cough GI GI: Reports as per HPI Psych Psych: Reports system reviewed and no additional complaints, except as documented Exam Const General: cooperative, healthy appearing, comfortable and no acute distress Resp Effort Inspection: normal respiratory effort General: bimanual renal exam normal bilaterally, bladder normal to palpation and No CVA tenderness Bimanual Exam- Vagina Uterus: bladder normal to palpation Other: complete uterine prolapse. skin tag on cervix present. Skin General: no rashes or lesions noted Psych Appearance: grossly normal Speech and Movement: speech and movement normal Coding Level of Care Code Off vis,est,level 4 Diagnoses Complete uterine prolapse with prolapse of anterior vaginal wall N81.3 Assessment and Plan Assessment and Plan (1) Complete uterine prolapse with prolapse of anterior vaginal wall: Status: Acute Plan: plan for vaginal hysterectomy, possible A P repair pending consultation with Dr. Barnes Patient declines a pessary She understands surgery may not happen before may 2025. ultrasound pending. if lining >11 mm will need emb. 02/02/25 1142 Date Kaylah Aguilar Signature: Date (if applicable) CC: Normal [facility] Pelvic w/ Transvaginalon Pelvic w/ Transvaginal [facility] Imaging Services [address] [place], [place] [address] Pelvic w/ Transvaginal MR#: [id number] Acct: [id number] Name: ANA PAULA [place] Rep #: [id number] : 1955 F 69 From: Rashard Huff MD PCP: Care Physician,No Primary Status: REG CLI Study: Pelvic w/ Transvaginal Date of Exam: 02/02/25 Exam# [id number] Ordering Dr: Carlotta Quick PROCEDURE: PELVIC W/ TRANSVAGINAL 02/02/2025 REASON FOR EXAM: SURGICAL PLANNING TECHNIQUE: Transabdominal and transvaginal pelvic ultrasound FINDINGS: Transabdominal and transvaginal imaging The uterus measures 6.1 x 5 x 3.1 cm. 0.9 x 1 x 0.9 cm uterine fibroid noted. Endometrial stripe measures 2-4 mm. Cervix appears within limits. The right ovary is not visualized. The left ovary measures 2.5 x 2.7 x 2.4 cm and contains a couple of 3 mm and less echogenic foci possible calcification or fat. No evidence of adnexal mass. No free fluid seen. Bladder volume 72 cc. US/Pelvic w/ Transvaginal IMPRESSION: Small 1 cm uterine fibroid. The right ovary is not identified. Reading Location: [facility] CC: TELEVISION PICTURE TUBE REBUILDER-Lyn Quick; No Primary Care Physician Rd Lab Technician: Signed Normal [facility] Cervical or vaginal specimen microscopic examination by liquid based cytology (reportOrdered By: Carlotta Quick on 01-29-2025 Cytology report Cyto stain.thin prep Doc (Cvx/Vag) Comment . [facility] Comment on above: Criteria not met, HP V Genotype not performed.Performed at: - [address] [id number] Director: Dahlia Galvan MD, Phone: [phone] at: =[address] [id number] Director: Dahlia Galvan MD, Phone: [phone] Cervical or vagninal specime n microscopic examination by cytology stain (reported asOrdered By: Carlotta Quick on 01-29-2025 Cytology report Cyto stain Doc (Cvx/Vag) Comment . [facility] Comment on above: The Pap smear is a s creening test designed to aid in thedetection of premalignant and malignant conditions of theuterine cervix. It is not a diagnostic procedure andshould not be used as the sole means of detecting cervicalcancer. Both false-positive and false-negative reports dooccur. Detection in cervical specim en of any of human papilloma virus (HPV) 16, 18, 31, 33,Ordered By: Carlotta Quick on 01-29-2025 HPV 16+18+31+33+35+39+45+5 1+52+56+58+59+66+68 DNA Probe+sig amp Ql (Cvx) Negative Negative [facility] Comment on above: This nucleic acid am plification test detects fourteen high- risk HPV types (16,18,31,33,35,39,45,51,52,56,58,59,66,68)without differentiation. Laboratory - CytologyOrdered By: Carlotta Quick on 01-29-2025 Voice Over Announcer Cyto stain Nom (Cvx/Vag) [ID] Comment . [facility] Comment on above: Daphne Yates (ASCP) Recommended follow-up Cyto stain Nom (Cvx/Vag) Comment . [facility] Comment on above: Suggest follow up as clinically appropriate. Laboratory - Miscellaneous t estsOrdered By: Carlotta Quick on 01-29-2025 Service comment (Unsp spec) [Interp] . . [facility] No Panel InformationOrdered By: Carlotta Quick on 01-29-2025 Pap Smear QC Review Comment . [facility] Comment on above: Willis Servin (ASCP) Pap Smear Specimen Adequacy Comment . [facility] Comment on above: Specimen processed a nd examined but unsatisfactory for evaluation ofepithelial abnormality because of insufficient cellularity. Health Care Recruiter Office Visit Reporton 01-29-2025 Health Care Recruiter Office Visit Report [facility], [address] [place] [address] OFFICE VISIT Date of Service: 01/29/25 MR#: [id number] Acct: [id number] Name: ANA PAULA [place] Rep #: [id number] : 1955 Provider: JONE Gomez Age/Sex: 69/F Location: [facility] [place] Status: Signed Intake Vital Signs 01/29/25 11:38 Height 5 ft Weight: 169 lb BMI 33.0 BP 154/99 H Intake Visit Reasons: PROLAPSE UTERUS Language Arts Teacher Required: No Is patient in pain?: No Allergies No Known Allergies Allergy (Unverified 01/29/25 11:39) Medications ???Medication ???Instructions ???Recorded ???Confirmed ???Type natural vitamins PO 01/29/25 History Post menopausal: Yes Patient : No : No Do you think of yourself as: straight/heterosexual Current gender identity: female PFSH Medical History (Updated 01/29/25 @ 13:04 by JONE Rios) Cholecystitis Surgical History (Updated 01/29/25 @ 11:41 by Ana Paula Siddiqui) S/P cholecystectomy Social History (Updated 01/29/25 @ 11:43 by Ana Paula Siddiqui) adopted: No household members: spouse housing: house number of children: 7 service: No current occupational status: unemployed pets and animals: No history of recent travel: Yes ([place]) out of state: Yes out of country: No sexually active: Yes do you think of yourself as: straight/heterosexual current gender identity: female Smoking Status: Never smoker second hand exposure: No alcohol intake: never substance use type: does not use well-balanced diet: daily or most days caffeine: Yes Type: coffee Number of servings: 2 eating out: 1-3 times/week during the past year weight has: remained stable what type of physical activity do you participate in: none dago/pentecostalism: Spiritism seatbelt use: sometimes do you feel safe at home: Yes additional social history: - Scooter PIERCE HPI PROLAPSE UTERUS Details: ANA PAULA [place] is a 69 year old who presents for what feels like a prolapsed uterus. She has tried chiropractic therapy in the past. She reports she can a vaginal bulge that she can feel. She sometimes has to splint as well as manipulate it to be able to void. She has had a PAP years ago but has not had a PAP anytime recently. She reports no vaginal bleeding. She has been in menopause for over 11 years ago. No recurrent uti's associated with this. Female Reproductive History Questions: sexually active: Yes, dyspareunia: No and PCB: No History 7 Elective abortions Hx Para Spontaneous abortions Hx # Term Pregnancies Ectopic pregnancies Hx # Pregnancies Multiple births # of living children 7 ROS Const Constitutional: Denies body ache, chills, fever(s) or headache(s) Cardio Card: Denies palpitations Resp Resp: Denies cough GI GI: Denies constipation : Reports as per HPI, difficulty voiding (see HPI) and prolapse symptoms; Denies dysuria, pelvic pain, vaginal discharge, vaginal dryness, vaginal odor or vaginal pruritus Skin Skin/Breast: Denies rash Exam Const General: cooperative, healthy appearing, comfortable, no acute distress, well groomed and well hydrated Nutritional Appearance: well nourished Orientation: alert, awake and oriented x3 Resp Effort Inspection: normal respiratory effort, able to speak in complete sentences and symmetric chest movement GI Inspection: normal to inspection Palpation: soft and no hepatosplenomegaly General: bladder normal to palpation External Female Exam: normal external appearance and normal appearance of the urethra Urethra: normal appearance of the urethra Speculum Exam - Vagina: normal appearance of the vagina, normal vaginal discharge, no lesions and nontender Speculum Exam - Cervix: normal appearance of the cervix, no lesions and no masses Bimanual Exam- Vagina Uterus: normal bimanual exam, bladder normal to palpation, normal palpation, non-tender and enlarged Bimanual Exam- Adnexa, other: normal adnexae, no masses, non-tender, vaginal apex descent and other (Stage 4 UVP with rectocele) Pelvic Support: vaginal apex descent Skin General: no rashes or lesions noted Neuro General: patient alert, patient awake, patient oriented x3 and moves all extremities Psych Appearance: grossly normal Mental Status: mental status grossly normal Affect: normal affect Speech and Movement: speech and movement normal Attitude: cooperative Coding Level of Care Code Established Pt Off vis,est,level 3 Patient Type Established Diagnoses Rectocele with complete uterovaginal prolapse N81.4 Screening for cervical cancer Z12.4 Assessment and Plan Assessment and Plan (1) Rectocele with complete uterovaginal prolapse: Status: Acute Comment: Stage 4 Plan: Discussed treatment opt (more content not included)... Normal [facility] - Chemistry and C hemistry - challengeon 03-02-2024 Albumin [Mass/Vol] 3.9 g/dL Normal 3.4 - 5.0 g/dL [facility]; [facility], [facility] Albumin [Mass/Vol] 1.3 g/dL Normal 0.9 - 1.6 [facility]; [facility], [facility] ALT [Catalytic activity/Vol] 52 U/L Normal 16 - 63 U/L [facility]; [facility], [facility] Anion gap [Moles/Vol] 12 mmol/L Normal 10 - 2 0 mmol/L [facility]; [facility], [facility]. AST [Catalytic activity/Vol] 21 U/L Normal 13 - 39 U/L [facility]; [facility], [facility] Bilirubin [Mass/Vol] 0.5 mg/dL Normal 0.2 - 1 .0 mg/dL [facility]; [facility], [facility] Calcium [Mass/Vol] 9.4 mg/dL Normal 8.5 - 10. 1 mg/dL [facility]; [facility], [facility]. Chloride [Moles/Vol] 99 mmol/L Normal 98 - 10 7 mmol/L [facility]; [facility], [facility]. CO2 [Moles/Vol] 30.0 mmol/L Normal 21.0 - 32.0 mmol/L [facility]; [facility], [facility]. Creatinine [Mass/Vol] 0.81 mg/dL Normal 0.55 - 1.02 mg/dL [facility]; [facility], [facility]. GFR/1.73 sq M.predicted among blacks MDRD (S/P/Bld) [Vol rate/Area] mL/min/{1.73_m2} Normal 60 - 999 {ML/MINUTE} [facility]; [facility], [facility]. GFR/1.73 sq M.predicted MDRD (S/P/Bld) [Vol rate/Area] mL/min/{1.73_m2} Normal 60 - 999 {ML/MINUTE} [facility]; [facility], [facility] Globulin (S) [Mass/Vol] 2.9 g/dL Normal 1.5 - 3.8 g/dL [facility]; [facility], [facility] Glucose [Mass/Vol] 111 mg/dL Abnormal 74 - 106 mg/dL [facility]; [facility], [facility] Lipase [Catalytic activity/Vol] 20.0 U/L Normal 15.0 - 78.0 U/L [facility]; [facility], [facility] Potassium [Moles/Vol] 3.9 mmol/L Normal 3.5 - 5.1 mmol/L [facility]; [facility], [facility] Protein [Mass/Vol] 6.8 g/dL Normal 6.4 - 8.2 g/dL [facility]; [facility], [facility]. Sodium [Moles/Vol] 137 mmol/L Normal 136 - 145 mmol/L [facility]; [facility], [facility]. Urea nitrogen [Mass/Vol] 10 mg/dL Normal 7 - 18 mg/dL [facility]; [facility], [facility]. Urea nitrogen/Creatinine [Mass ratio] 12 {ratio} Normal 0 - 30 {ratio} [facility]; [facility], [facility] Laboratory - Hematology and Cell countson 03-02-2024 Basophils (Bld) [#/Vol] 0.10 {x10EE3/UL} Normal 0.00 - 0.10 {x10EE3/UL} [facility]; [facility], [facility] Basophils/100 WBC (Bld) 0.6 % Normal 0.0 - 2.0 % [facility]; [facility], [facility] Basophils/100 WBC (Bld) 3.0 % Abnormal 0.0 - 2.0 % [facility]; [facility] Eosinophils (Bld) [#/Vol] 0.77 {x10EE3/UL} Abnormal 0.00 - 0.50 {x10EE3/UL} [facility]; [facility], [facility] Eosinophils/100 WBC (Bld) 4.7 % Normal 0.0 - 7.0 % [facility]; [facility] Erythrocyte distribution width (RBC) [Ratio] 13.4 % Normal 12.0 - 15.6 % [facility]; [facility], [facility] Hematocrit (Bld) [Volume fraction] 47.2 % Abnormal 34.0 - 46.0 % [facility]; [facility], [facility] Hemoglobin (Bld) [Mass/Vol] 15.9 g/dL Normal 12.0 - 16.0 g/dL [facility]; [facility], [facility] Lymphocytes (Bld) [#/Vol] 5.78 {x10EE3/UL} Abnormal 0.80 - 2.80 {x10EE3/UL} [facility]; [facility], [facility] Lymphocytes/100 WBC (Bld) 35.7 % Normal 20.0 - 45.0 % [facility]; [facility], [facility] Lymphocytes/100 WBC (Bld) 45 % Abnormal 20 - 40 % [facility]; [facility], [facility]. MCH (RBC) [Entitic mass] 30 pg Normal 27 - 33 pg [facility]; [facility], [facility]. MCHC (RBC) [Mass/Vol] 34 {X10_3} Normal 32 - 3 6 {X10_3} [facility]; [facility], [facility] MCV (RBC) [Entitic vol] 89 fL Normal 80 - 99 fL [facility]; [facility], [facility]. Monocytes (Bld) [#/Vol] 1.36 {x10EE3/UL} Abnormal 0.20 - 1.00 {x10EE3/UL} [facility].; [facility], [facility]. Monocytes/100 WBC (Bld) 8.4 % Normal 0.0 - 10.0 % [facility].; [facility], [facility]. Morphology Denis (Bld) [Interp] REVIEWED Normal [facility].; [facility], [facility]. Neutrophils (Bld) [#/Vol] 8.20 {x10EE3/UL} Abnormal 1.50 - 7.10 {x10EE3/UL} [facility].; [facility], [facility]. Neutrophils/100 WBC (Bld) 50.6 % Normal 46.0 - 76.0 % [facility].; [facility], [facility]. Platelet mean volume (Bld) [Entitic vol] 9.4 fL Normal 6.6 - 10.5 fL [facility] [employer] [facility].; [facility], [facility]. Platelets (Bld) [#/Vol] 380 {x10EE3/UL} Normal 150 - 450 {x10EE3/UL} [facility] [employer] [facility] [employer] [facility].; [facility], [facility]. RBC (Bld) [#/Vol] 5.30 {x_10EE6/UL} Normal 4.10 - 5.30 {x_10EE6/UL} [facility] [employer] [facility].; [facility], [facility]. WBC (Bld) [#/Vol] 16.2 {x_10EE3/UL} Abnormal 4.5 - 10.8 {x_10EE3/UL} [facility] [employer] [facility].; [facility] [employer] [facility], [facility]. No Panel Informationon 03-02 AGE 68 {years} Normal [facility] [employer] [facility].; [facility] [employer] [facility] [facility] Department[facility] [employer] [facility] ALK PHOS 89 U/L Normal 46 - 116 U/L [facility].; [facility] BANDS 3 % Normal 0 - 5 % [facility], [facility].; [facility] CBC + DIFF Normal [facility], [facility].; [facility] CMP with eGFR Normal [facility], [facility].; [facility] EO 7.0 % Abnormal 0.0 - 4.0 % [facility], [facility].; [facility] MANUAL DIFF SEE BELOW Normal [facility], [facility].; [facility] MONOS 5 % Normal 0 - 8 % [facility], [facility].; [facility] SEGS 37 % Abnormal 50 - 70 % [facility], [facility].; [facility], [facility]. Vital Signs Date Time Vital Sign Value Performing Clinician Facility 06-13-2025 14:57-0400 Body height 151.13 cm [facility], [facility].; [facility], [facility]. 06-13-2025 14:57-0400 Body mass index (BMI) [Ratio] 33.17 kg/m2 [facility], [facility].; [facility], [facility]. 06-13-2025 14:57-0400 Body surface area Derived from formula 1.72 m2 [facility], [facility].; [facility], [facility]. 06-13-2025 14:57-0400 Body weight 75.75 kg [facility], [facility].; [facility] [employer] [facility], [facility] 06-13-2025 14:57-0400 Diastolic blood pressure 92 mm[Hg] [facility].; [facility], [facility]. Comment on above: Patient Position: Sitting; Cuff Location : Left Arm; Cuff Size: Large 06-13-2025 14:57-0400 Heart rate 99 /min [facility]; [facility], [facility]. Comment on above: Pattern: Regular 06-13-2025 14:57-0400 Systolic blood pressure 139 mm[Hg] Lina Sue [facility]; DAVID PUENTES [facility] Comment on above: Patient Position: Sitting; Cuff Location : Left Arm; Cuff Size: Large 06-11-2025 11:28-0400 Body height 152.4 cm No Primary Care Physician [facility] 06-11-2025 11:28-0400 Body mass index (BMI) [Ratio] 33.2 kg/m2 No Primary Care Physician [facility] 06-11-2025 11:28-0400 Body temperature 97.9 [degF] No Primary Care Physician [facility] 06-11-2025 11:28-0400 Body weight 77.11 kg No Primary Care Physician [facility] 06-11-2025 11:28-0400 Diastolic blood pressure 84 mm[Hg] No Primary Care Physician [facility] 06-11-2025 11:28-0400 Heart rate 68 /min No Primary Care Physician [facility] 06-11-2025 11:28-0400 Systolic blood pressure 134 mm[Hg] No Primary Care Physician [facility] 05-25-2025 14:49-0400 Body height 152.4 cm Carlotta Quick TELEVISION PI[employer]URE TUBE REBUILDER-C Work Phone: [facility] 05-25-2025 14:46-0400 Body mass index (BMI) [Ratio] 33.3 kg/m2 Carlotta Quick TELEVISION PI[employer]URE T[employer] REBUILDER-C Work Phone: [facility] 05-25-2025 14:46-0400 Body weight 77.36 kg Carlotta Quick TELEVISION PICTURE TUBE REBUILDER-C Work Phone: [facility] 05-25-2025 14:46-0400 Diastolic blood pressure 96 mm[Hg] Carlotta Quick TELEVISION PICTURE TUBE REBUILDER-C Work Phone: [facility] 05-25-2025 14:46-0400 Systolic blood pressure 168 mm[Hg] Carlotta Quick TELEVISION PICTURE TUBE REBUILDER-C Work Phone: [facility] 05-25-2025 13:16-0400 Body height 152.4 cm Carlotta Barkman TELEVISION PICTURE TUBE REBUILDER-C Work Phone: [facility] 05-25-2025 13:16-0400 Body mass index (BMI) [Ratio] 31.2 kg/m2 Carlotta Vidalesman TELEVISION PICTURE TUBE REBUILDER-C Work Phone: [facility] 05-25-2025 13:16-0400 Body weight 72.57 kg Carlotta Vidalesman TELEVISION PICTURE TUBE REBUILDER-C Work Phone: [facility] 05-25-2025 13:16-0400 Diastolic blood pressure 79 mm[Hg] Carlotta Vidalesman TELEVISION PICTURE TUBE REBUILDER-C Work Phone: [facility] 05-25-2025 13:16-0400 Heart rate 95 /min Carlotta Vidalesman TELEVISION PI[employer]URE TUBE REBUILDER-C Work Phone: [facility] 05-25-2025 13:16-0400 Systolic blood pressure 150 mm[Hg] Carlotta Vidalesman TELEVISION PICTURE TUBE REBUILDER-C Work Phone: [facility] 02-02-2025 10:27-0400 Body height 152.4 cm Carlotta Vidalesman TELEVISION PICTURE TUBE REBUILDER-C Work Phone: [facility] 02-02-2025 10:27-0400 Body mass index (BMI) [Ratio] 32.8 kg/m2 Carlotta Vidalesman TELEVISION PI[employer]URE TUBE REBUILDER-C Work Phone: [facility] 02-02-2025 10:27-0400 Body weight 76.31 kg Carlotta Vidalesman TELEVISION PICTURE TUBE REBUILDER-C Work Phone: [facility] 02-02-2025 10:27-0400 Diastolic blood pressure 112 mm[Hg] Carlotta Vidalesman TELEVISION PICTURE TUBE REBUILDER-C Work Phone: [facility] 02-02-2025 10:27-0400 Systolic blood pressure 156 mm[Hg] Carlotta Vidalesman TELEVISION PICTURE TUBE REBUILDER-C Work Phone: [facility] 01-29-2025 11:38-0400 Body height 152.4 cm Carlotta Vidalesman TELEVISION PICTURE TUBE REBUILDER-C Work Phone: [facility] 01-29-2025 11:38-0400 Body mass index (BMI) [Ratio] 33 kg/m2 Carlotta Quick TELEVISION PICTURE TUBE REBUILDER-C Work Phone: [facility] 01-29-2025 11:38-0400 Body weight 76.65 kg Carlotta Quick TELEVISION PICTURE TUBE REBUILDER-C Work Phone: [facility] 01-29-2025 11:38-0400 Diastolic blood pressure 99 mm[Hg] Carlotta Quick TELEVISION PICTURE TUBE REBUILDER-C Work Phone: [facility] 01-29-2025 11:38-0400 Systolic blood pressure 154 mm[Hg] Carlotta Quick TELEVISION PICTURE TUBE REBUILDER-C Work Phone: [facility] 03-02-2024 16:12-0400 Body height 151.13 cm Lexi Meyer RN [facility] [employer] [facility], [employer] [facility] [employer] [facility], [employer] 03-02-2024 16:12-0400 Body mass index (BMI) [Ratio] 31.18 kg/m2 Lexi Meyer RN [facility] [employer] [facility] [facility] DepartmentC[facility] Capital Ltd Inc.; [employer] [facility] [employer] [facility], [employer] 03-02-2024 16:12-0400 Body surface area Derived from formula 1.67 m2 Lexi Meyer RN [facility] [employer] [facility] [facility].; [facility] [employer] [facility], [facility] 03-02-2024 16:12-0400 Body temperature 99.1 [degF] Lexi Meyer RN [facility] [employer] [facility] [facility]Change [facility].; [employer] [facility], [facility] Comment on above: Method: Oral 03-02-2024 16:12-0400 Body weight 71.22 kg Lexi Meyer RN [facility] [facility] DepartmentC[facility] Capital Ltd Inc.; [employer] [facility], [facility] 03-02-2024 16:12-0400 Diastolic blood pressure 80 mm[Hg] Lexi Meyer RN [facility].; [employer] [facility] Comment on above: Patient Position: Sitting; Cuff Location : Left Arm; Cuff Size: Large 03-02-2024 16:12-0400 Heart rate 91 /min Lexi Meyer RN [facility] [place] [facility] DepartmentC[facility] Ltd Inc.; [employer] [facility] [place] [facility] DepartmentChange [facility]. Comment on above: Pattern: Regular 03-02-2024 16:12-0400 Systolic blood pressure 110 mm[Hg] Lexi Meyer RN [facility], [facility].; [facility]. Comment on above: Patient Position: Sitting; Cuff Location : Left Arm; Cuff Size: Large 02-16-2024 14:180400 Body height 151.13 cm DELILAH DELGADO RN [facility], [facility].; [facility] [employer] 02-16-2024 14:18-0400 Body mass index (BMI) [Ratio] 32.97 kg/m2 DELILAH DELGADO RN [facility], [facility].; [facility] [employer]. 02-16-2024 14:18040 Body surface area Derived from formula 1.71 m2 DELILAH DELGADO RN [facility], [facility].; [facility]. 02-16-2024 14:18-040 Body temperature 98 [degF] DELILAH DELGADO RN [facility]; [facility]. Comment on above: Method: Oral 02-16-2024 14:180400 Body weight 75.3 kg DELILAH DELGADO RN [facility]; [facility], [employer] 02-16-2024 14:18-0400 Diastolic blood pressure 90 mm[Hg] DELILAH DELGADO RN [facility]; [facility]. Comment on above: Patient Position: Sitting; Cuff Location : Right Arm; Cuff Size: Large 02-16-2024 14:18-0400 Heart rate 102 /min DELILAH DELGADO RN [facility], [facility].; [facility]. Comment on above: Pattern: Regular 02-16-2024 14:18-0400 Inhaled oxygen concentration 21 % DELILAH DELGADO RN [facility], [facility].; [facility]. Comment on above: Room air 02-16-2024 14:18-0400 SaO2% (BldA) [Mass fraction] 97 % DELILAH DELGADO RN [facility].; [facility]. 02-16-2024 14:18-0400 Systolic blood pressure 146 mm[Hg] DELILAH DELGADO RN [facility].; [facility]. Comment on above: Patient Position: Sitting; Cuff Location : Right Arm; Cuff Size: Large 09-18-2021 09:17-0500 Body height 151.13 cm ASHLEY Kyma Medical TechnologiesER RECRUITMENT INTERN-C Work Phone: [facility].; [employer] [facility]. 09-18-2021 09:17-0500 Body mass index (BMI) [Ratio] 30.98 kg/m2 locrER RECRUITMENT INTERN-C Work Phone: [facility].; [facility]. 09-18-2021 09:17-0500 Body surface area Derived from formula 1.67 m2 locrER RECRUITMENT INTERN-C Work Phone: [facility].; [employer] [facility]. 09-18-2021 09:17-0500 Body temperature 98.3 [degF] locrER RECRUITMENT INTERN-C Work Phone: [facility] HospitalRe-APP; [facility]ENTEROcc[facility]. Comment on above: Method: Tympanic 09-18-2021 09:17-0500 Body weight 70.76 kg locrER RECRUITMENT INTERN-C Work Phone: [facility].; [facility] [employer] [facility] [facility]. 09-18-2021 09:17-0500 Diastolic blood pressure 87 mm[Hg] locrER RECRUITMENT INTERN-C Work Phone: [facility] [employer] [place] [facility]Change [facility].; [facility] [employer] [place] [facility]Change [facility]. Comment on above: Patient Position: Sitting; Cuff Location : Left Arm; Cuff Size: Standard 12-23-2021 09:17-0500 Heart rate 86 /min ASHLEY [employer]nergos[employer]ER RECRUITMENT INTERN-C Work Phone: [facility] Hospital[facility]; [employer] [facility] [employer] [facility] [facility] DepartmentChange [facility]. Comment on above: Pattern: Regular 09-18-2021 09:17-0500 Inhaled oxygen concentration 21 % ASHLEY LinekongTETTER RECRUITMENT INTERN-C Work Phone: [facility] [employer] [facility] [facility] DepartmentRe-APP; [facility]ENTER[facility] [employer] [facility] [facility] DepartmentChange [facility]. Comment on above: Room air 09-18-2021 09:17-0500 SaO2% (BldA) [Mass fraction] 96 % myeasydocsTETTER RECRUITMENT INTERN-C Work Phone: [facility] [employer] [facility] [facility] DepartmentRe-APP; [facility]ENTEROcc[facility] [employer] [facility] [facility] DepartmentChange [facility]. 09-18-2021 09:17-0500 Systolic blood pressure 145 mm[Hg] ASHLEY LinekongTETTER RECRUITMENT INTERN-C Work Phone: [facility] [employer] [place] [facility] DepartmentChange [facility].; [employer] [facility] [employer] [place] [facility] DepartmentChange [facility]. Comment on above: Patient Position: Sitting; Cuff Location : Left Arm; Cuff Size: Standard 06-27-2011 10:27-0400 Body height 151.13 cm [facility].; [employer] [facility] [employer] [place] [facility] DepartmentC[facility]d [facility] Capital Ltd [facility]. 06-27-2011 10:27-0400 Body mass index (BMI) [Ratio] 31.18 kg/m2 [facility] [employer] [place] [facility] DepartmentChange [facility].; [employer] [facility] [employer] [place] [facility] DepartmentC[facility]d [facility] [employer] [facility]. 06-27-2011 10:27-0400 Body surface area Derived from formula 1.[address] [facility] [employer] [place] [facility] DepartmentChange [facility].; [employer] [facility] [employer] [place] [facility] DepartmentC[facility]d [facility] [employer] [facility]. 06-27-2011 10:27-0400 Body temperature 98.5 [degF] [facility] [employer] [place] [facility] DepartmentChange [facility].; [employer] [facility] [employer] [place] [facility] DepartmentChange [facility]. Comment on above: Method: Oral 06-27-2011 10:27-0400 Body weight 71.22 kg [facility], Inc[employer] 06-27-2011 10:27-0400 Diastolic blood pressure 85 mm[Hg] LYNNE S [employer] Comment on above: Patient Position: Sitting; Cuff Location : Left Arm; Cuff Size: Standard 06-27-2011 10:27-0400 Heart rate 92 /min LYNNE S [employer] Comment on above: Pattern: Regular 06-27-2011 10:27-0400 Systolic blood pressure 125 mm[Hg] [employer] Comment on above: Patient Position: Sitting; Cuff Location : Left Arm; Cuff Size: Standard Encounters Encounter Date Encounter Type Care Provider Facility Start: 07-31-2025 Encounter for other preprocedural examination [facility] Start: 06-26-2025 End: 06-26-2025 Results Review KAMILA RODRIGUEZ RECRUITMENT INTERN-C Work Phone: [employer], [employer] Start: 06-25-2025 End: 06-25-2025 Admission to same day surgery center KAMILA RODRIGUEZ RECRUITMENT INTERN-C Work Phone: [employer] Start: 06-25-2025 End: 06-25-2025 ambulatory Nidia CROCKER [facility] Start: 06-13-2025 End: 06-13-2025 Office outpatient visit 25 minutes KAMILA RODRIGUEZ RECRUITMENT INTERN-C Work Phone: [employer]. Start: 06-13-2025 End: 06-13-2025 Preoperative state Nidia CROCKER MD Work Phone: [employer] [facility]. Start: 06-13-2025 Review KAMILA BAUER CH RECRUITMENT INTERN-C Work Phone: [facility] Start: 06-11-2025 End: 06-11-[address] Dione Barnes MD -[facility] Work Phone: Start: 06-11-2025 End: 06-11-2025 ambulatory No Primary Care Physician -[facility] Start: 05-25-2025 End: 05-25-2025 ambulatory Carlotta Quick TELEVISION PICTURE TUBE REBUILDER-C Work Phone: -[facility] Start: 05-25-2025 End: 05-25-[address] Kaylah Chris DO -[facility] Work Phone: Start: 05-25-2025 End: 05-25-[address] Dione Barnes MD -[facility] Work Phone: Start: 05-25-2025 End: 05-25-2025 ambulatory Carlotta Quick TELEVISION PICTURE TUBE REBUILDER-C Work Phone: -[facility] Start: 03-27-2025 Non-patient / Non-visit Dr. Dione maya MD -[facility] Work Phone: Start: 02-02-2025 End: 02-02-2025 ambulatory Carlotta Quick TELEVISION PICTURE TUBE REBUILDER-C Work Phone: [facility] Work Phone: Start: 02-02-2025 End: 02-02-2025 Patient encounter procedure Carlotta Quick NP-C -[facility] Work Phone: Start: 02-02-2025 End: 02-02-[address] Kaylah Chris DO -[facility] Work Phone: Start: 02-02-2025 End: 02-02-2025 ambulatory No Primary Care Physician Facility:[facility] Start: 02-02-2025 End: 02-02-2025 ambulatory No Primary Care Physician Facility:[facility] Start: 01-29-2025 End: 01-29-2025 ambulatory Carlotta Quick TELEVISION PICTURE TUBE REBUILDER-C Work Phone: [facility] Work Phone: Start: 01-29-2025 End: 01-29-2025 Patient encounter procedure Carlotta Vidalesdenisse TELEVISION PICTURE TUBE REBUILDER-C -Laboratory, Specimen Work Phone: Start: 01-29-2025 End: 01-29-2025 Patient encounter procedure Carlotta Vidalesdenisse TELEVISION PICTURE TUBE REBUILDER-C -[facility] @ Start: 01-29-2025 End: 01-29-2025 ambulatory Carlotta Quick Facility:[facility] Start: 01-29-2025 End: 01-29-2025 ambulatory Carlottajose antonio Quick Facility:[facility] Start: 03-03-2024 End: 03-03-2024 Follow-up encounter ASHLEY MARX RECRUITMENT INTERN-C Work Phone: [employer] Start: 03-02-2024 End: 03-02-2024 Office outpatient visit 10 minutes ASHLEY LINER RECRUITMENT INTERN-C Work Phone: [employer]. Start: 02-16-2024 End: 02-16-2024 Office outpatient visit 10 minutes ASHLEY WESTTEVANGIEER RECRUITMENT INTERN-C Work Phone: [employer]. Start: 09-18-2021 End: 09-18-2021 Office outpatient visit 10 minutes ASHLEY LINER RECRUITMENT INTERN-C Work Phone: [employer]. Start: 06-27-2011 End: 06-27-2011 Office Service Misc. ASHLEY MARX RECRUITMENT INTERN-C Work Phone: [employer] Start: 06-27-2011 End: 06-27-2011 Patient encounter procedure ASHLEY MARX RECRUITMENT INTERN-C Work Phone: [employer] Start: 06-24-2011 End: 06-24-2011 Historical Summary ASHLEY MARX RECRUITMENT INTERN-C Work Phone: [facility] [employer] Procedures Date Procedure Procedure Detail Performing Clinician Start: 06-25-2025 End: 06-25-2025 Us abdominal real time w/image documentation Nidia CROCKER MD Work Phone: Start: 02-02-2025 Pelvic echography Alissa Quick TELEVISION PICTURE TUBE REBUILDER-C Work Phone: Start: 01-29-2025 Liquid based cervica l cytology screening Carlotta Quick TELEVISION PICTURE TUBE REBUILDER-C Work Phone: Comment on above: UNSATISFACTORY FOR E VALUATION. Test not performedTh e Thin Prep(R) Psychiatry Instructor was unable to read this specimen.Therefore a manual review was performed. Start: 03-02-2024 End: 03-02-2024 Dischrg meds reconciled w/current med list ASHLEY MARX RECRUITMENT INTERN-C Work Phone: Start: 09-18-2021 End: 09-18-2021 Dischrg meds reconciled w/current med list ASHLEY MARX RECRUITMENT INTERN-C Work Phone: Start: 09-27-2000 End: 09-27-2000 D&C Nidia CROCKER MD Work Phone: Start: 09-27-1994 End: 09-27-1994 Cholecystectomy Nidia CROCKER MD Work Phone: Comment on above: laparoscopic Cholecystectomy DELILAH DELGADO RN Plan of Treatment Date Care Activity Detail Author Start: 09-14-2025 ambulatory Ambulatory Facility:[facility] Start: 06-13-2025 Blood count complete automated CBC & PLATELETS (AUTO) (11005) Start: 13-Jun-2025 Request MedTel24; [employer]. Start: 06-13-2025 Comprehensive metabolic panel CMP - COMPREHENSIVE METABOLIC PANEL (33462) Start: 13-Jun-2025 Request MedTel24; [employer]. Start: 06-13-2025 Echo ttc r-t 2d w/wom-mode compl spec&colr d CARDIAC ECHO WITH DOPPLER (25005) Start: 13-Jun-2025 Intent [employer].; [employer]. Start: 06-13-2025 Hemoglobin glycosylated a1c HEMOGLOBIN GLYCLATED (HGB A1C) (86582) Start: 13-Jun-2025 Request [employer].; [employer] [facility] [employer]. Start: 06-13-2025 Us abdominal real time w/image documentation US ABDOM, COMPLETE (53034) Start: 13-Jun-2025 Intent [facility]; [facility] Start: 01-29-2025 Liquid based cervical cytology screening [facility] Start: 03-16-2024 Blood count complete auto&auto difrntl wbc CBC, PLATELETS & AUT DIFF (59420) Start: 16-Mar-2024 13:49-04:00 Request [employer].; [employer] [facility] [employer]. Start: 03-02-2024 Assay of lipase LIPASE (38741) Start: 02-Mar-2024 16:54-04:00 Request [employer].; [employer]. Start: 03-02-2024 Comprehensive metabolic panel CMP - COMPREHENSIVE METABOLIC PANEL (38028) Start: 02-Mar-2024 16:54-04:00 Request [employer].; [employer]. Start: 03-02-2024 Blood count complete auto&auto difrntl wbc CBC, PLATELETS & AUT DIFF (58634) Start: 02-Mar-2024 16:54-04:00 Request [employer].; [employer]. Start: 06-27-2011 Removal skn tags rubber goods inspector fibrq tags any area upw/15 DESTRUCT OF SKIN TAGS (82952) Start: 27-Jun-2011 Intent [employer].; [employer] Complex cystometrogram [facility] Cytology report of Cervical or vaginal smear or scraping Cyto stain.thin prep [facility] Path report.final Dx Spec Wo [facility] US Pelvis [facility] Immunizations Immunization Date Immunization Notes Care Provider Mann castrejon 06-27-2011 tetanus toxoid, redu jelani diphtheria toxoid, and acellular pertussis vaccine, adsorbed ASHLEY MARX RECRUITMENT INTERN-C Work Phone: [facility] [facility]; [facility] [employer] [facility] Comment on above: Site: Deltoid (Left) 06-27-2011 *IMMUNIZATION ADMIN ([id number]) ASHLEY MARX RECRUITMENT INTERN-C Work Phone: [employer] [facility]; [facility] [employer] [facility] Payers Date Payer Category Payer Unknown [id number] 2025 Unknown [id number] 2025 Self-pay 1955 Unknown [id number] 2.16.8 [id number] Unknown [id number] Unknown Unknown [id number] 2.16.8 [id number] Unknown [id number] 2.16.8 [id number] Unknown [id number] 2.16.8 [id number] Unknown [id number] 2.16.8 [id number] Unknown [id number] 2.16.8 [id number] Unknown [id number] 2.16.8 [id number] Unknown [id number] 2.16.8 [id number] Unknown [id number] 2.16.8 [id number] Social History Date Type Detail Facility Alcohol Use: Alcohol Use: ; N ever used alcohol. [facility] Tobacco use: Tobacco use: ; N ever smoker. [facility] [facility] Start: 1955 Female [facility] Start: 01-29-2025 End: 06-01-2025 Never smoked tobacco [facility] Gender Identity Identifies as fe male gender (finding) [facility] Sexual Orientation Heterosexual (finding) [facility] Marital status: Marital status: ; . [facility] Spouse's Employment Spouse's Employment [facility] Evaluation note 05-28-2025 Note Date & Type Note Facility 05-28-2025 Evaluation note Diagnosis Onset Date Resolution Complete uterine prolapse with prolapse of anterior vaginal wall May, acute May 25, 2025 12:39pm Nocturia acute May 25, 2025 12:39pm Rectocele acute May 25, 2025 12:39pm Vaginal atrophy acute May 252024 12:39pm Rectocele with complete uterovaginal prolapse acute May 25, 2025 2:36pm Complete uterine prolapse with prolapse of anterior vaginal wall May, acute June 11, 2025 9:50am Rectocele with complete uterovaginal prolapse acute June 11, 2025 9:50am Urinary tract infection noneactive June 11, 2025 9:50am [facility] Work Phone: Radiology Diagnostic study note 02-05-2025 Note Date & Type Note Facility 02-05-2025 Radiology Diagnostic study note [facility] Imaging Services [address] [place] [address] Pelvic w/ Transvaginal MR#: [id number] Acct: [id number] Name: ANA PAULA [place] Rep #: [id number] : 1955 F 69 From: Tl Huff MD PCP: Care Physician,No Primary Status: REG CLI Study:Pelvic w/ Transvaginal Date of Exam: 02/02/25 Exam# [id number] Ordering Dr: Carlotta Quick PROCEDURE: PELVIC W/ TRANSVAGINAL 02/02/2025 REASON FOR EXAM: SURGICAL PLANNING TECHNIQUE: Transabdominal and transvaginal pelvic ultrasound FINDINGS: Transabdominal and transvaginal imaging The uterus measures 6.1 x 5 x 3.1 cm. 0.9 x 1 x 0.9 cm uterine fibroid noted. Endometrial stripe measures 2-4 mm. Cervix appears within limits. The right ovary is not visualized. The left ovary measures 2.5 x 2.7 x 2.4 cm and contains a couple of 3 mm and less echogenic foci possible calcification or fat. No evidence of adnexal mass. No free fluid seen. Bladder volume 72 cc. US/Pelvic w/ Transvaginal IMPRESSION: Small 1 cm uterine fibroid. The right ovary is not identified. Reading Location: [facility] CC: JONE Quick; No Primary Care Physician ~ Rd Lab Technician: Signed [facility] Evaluation note 01-29-2025 Note Date & Type Note Facility 01-29-2025 Evaluation note Diagnosis Onset Date Resolution Rectocele with complete uterovaginal prolapse acute January 29, 025 10:31am Screening for cervical cancer acute January 29, 2025 10 :31am [facility] Work Phone: Evaluation note 01-29-2025 Note Date & Type Note Facility 01-29-2025 Evaluation note Diagnosis Onset Date Resolution Rectocele with complete uterovaginal prolapse acute January 29, 025 10:31am Screening for cervical cancer acute January 29, 2025 10 :31am Complete uterine prolapse with prolapse of anterior vaginal wall acute February 02, 2025 10 :19am [facility] Work Phone: Reason for referral (narrative) Note Date & Type Note Facility Reason for referral (narrative) No reason for referral information available [facility] Work Phone: Chief Complaint and Reason for Visit Chief Complaint Admit Date PROLAPSE UTERUS January 29, 2025 10:31a m Reason for Visit Admit Date Rectocele with complete uterovaginal pro lapse January 29, 2025 10:31am Screening for cervical cancer January 29, 2 025 10:31am Chief Complaint Admit Date PROLAPSE UTERUS January 29, 2025 10:31a m Hysterectomy Consult February 02, 2025 10:19 am Uterovaginal prolapse, unspecified February 022024 1:29pm Reason for Visit Admit Date Rectocele with complete uterovaginal pro lapse January 29, 2025 10:31am Screening for cervical cancer January 29, 025 10:31am Complete uterine prolapse wi th prolapse of anterior vaginal wall February 02, 2025 10:19am Chief Complaint Admit Date PROLAPSE UTERUS January 29, 2025 10:31a m Hysterectomy Consult February 02, 2025 10:19 am Uterovaginal prolapse, unspecified February 022024 1:29pm cysto, pelvic exam, next 2hr UDS Surg 09 ..May 25, 2025 12:39pm Chief Complaint Admit Date PROLAPSE UTERUS January 29, 2025 10:31a m Hysterectomy Consult February 02, 2025 10:19 am Uterovaginal prolapse, unspecified February 022024 1:29pm cysto, pelvic exam, next 2hr UDS Surg 09 ..May 25, 2025 12:39pm Hysterectomy [place] combo May 25, 2025 2:36pm Chief Complaint Admit Date cysto, pelvic exam, next 2hr UDS Surg 09 ..May 25, 2025 12:39pm Hysterectomy [place] combo May 25, 2025 2:36pm 2HR UDS June 11, 2025 9:50am Reason for Visit Admit Date Complete uterine prolapse wi th prolapse of anterior vaginal wall May 25, 2025 12:39pm Nocturia May 25, 2025 12 :39pm Rectocele May 25, 2025 12 :39pm Vaginal atrophy May 25, 2025 12 :39pm Rectocele with complete uterovaginal pro lapse May 25, 2025 2:36pm Complete uterine prolapse wi th prolapse of anterior vaginal wall June 11, 2025 9:50am Rectocele with complete uterovaginal pro lapse June 11, 2025 9:50am Urinary tract infection June 11, 2025 9:50am Family History No Family History Records Found Brother (s) Status:Active Comments:8. Some with CAD; 3 with CABG; Youngest was 50 when dx; 1 with cancer; 1 with chronic leukemia Daughter (s) Status:Active Comments:4. Father Status:Active Comments:d. 56 y o; CVA; Mother Status:Active Comments:d. 95; Sister (s) Status:Active Comments:1. Son (s) Status:Active Comments:3. Brother (s) Status:Active Comments:8. Some with CAD; 3 with CABG; Youngest was 50 when dx; 1 with cancer; 1 with chronic leukemia Daughter (s) Status:Active Comments:4. Father Status:Active Comments:d. 56 y o; CVA; Mother Status:Active Comments:d. 95; Sister (s) Status:Active Comments:1. Son (s) Status:Active Comments:3. Brother (s) Status:Active Comments:8. Some with CAD; 3 with CABG; Youngest was 50 when dx; 1 with cancer; 1 with chronic leukemia Daughter (s) Status:Active Comments:4. Father Status:Active Comments:d. 56 y o; CVA; Mother Status:Active Comments:d. 95; Sister (s) Status:Active Comments:1. Son (s) Status:Active Comments:3. Brother (s) Status:Active Comments:8. Some with CAD; 3 with CABG; Youngest was 50 when dx; 1 with cancer; 1 with chronic leukemia Daughter (s) Status:Active Comments:4. Father Status:Active Comments:d. 56 y o; CVA; Mother Status:Active Comments:d. 95; Sister (s) Status:Active Comments:1. Son (s) Status:Active Comments:3. Brother (s) Status:Active Comments:8. Some with CAD; 3 with CABG; Youngest was 50 when dx; 1 with cancer; 1 with chronic leukemia Daughter (s) Status:Active Comments:4. Father Status:Active Comments:d. 56 y o; CVA; Mother Status:Active Comments:d. 95; Sister (s) Status:Active Comments:1. Son (s) Status:Active Comments:3. Brother (s) Status:Active Comments:8. Some with CAD; 3 with CABG; Youngest was 50 when dx; 1 with cancer; 1 with chronic leukemia Daughter (s) Status:Active Comments:4. Father Status:Active Comments:d. 56 y o; CVA; Mother Status:Active Comments:d. 95; Sister (s) Status:Active Comments:1. Son (s) Status:Active Comments:3. Brother (s) Status:Active Comments:8. Some with CAD; 3 with CABG; Youngest was 50 when dx; 1 with cancer; 1 with chronic leukemia Daughter (s) Status:Active Comments:4. Father Status:Active Comments:d. 56 y o; CVA; Mother Status:Active Comments:d. 95; Sister (s) Status:Active Comments:1. Son (s) Status:Active Comments:3. Brother (s) Status:Active Comments:8. Some with CAD; 3 with CABG; Youngest was 50 when dx; 1 with cancer; 1 with chronic leukemia Daughter (s) Status:Active Comments:4. Father Status:Active Comments:d. 56 y o; CVA; Mother Status:Active Comments:d. 95; Sister (s) Status:Active Comments:1. Son (s) Status:Active Comments:3. Brother (s) Status:Active Comments:8. Some with CAD; 3 with CABG; Youngest was 50 when dx; 1 with cancer; 1 with chronic leukemia Daughter (s) Status:Active Comments:4. Father Status:Active Comments:d. 56 y o; CVA; Mother Status:Active Comments:d. 95; Sister (s) Status:Active Comments:1. Son (s) Status:Active Comments:3. Brother (s) Status:Active Comments:8. Some with CAD; 3 with CABG; Youngest was 50 when dx; 1 with cancer; 1 with chronic leukemia Daughter (s) Status:Active Comments:4. Father Status:Active Comments:d. 56 y o; CVA; Mother Status:Active Comments:d. 95; Sister (s) Status:Active Comments:1. Son (s) Status:Active Comments:3. Brother (s) Status:Active Comments:8. Some with CAD; 3 with CABG; Youngest was 50 when dx; 1 with cancer; 1 with chronic leukemia Daughter (s) Status:Active Comments:4. Father Status:Active Comments:d. 56 y o; CVA; Mother Status:Active Comments:d. 95; Sister (s) Status:Active Comments:1. Son (s) Status:Active Comments:3. Brother (s) Status:Active Comments:8. Some with CAD; 3 with CABG; Youngest was 50 when dx; 1 with cancer; 1 with chronic leukemia Daughter (s) Status:Active Comments:4. Father Status:Active Comments:d. 56 y o; CVA; Mother Status:Active Comments:d. 95; Sister (s) Status:Active Comments:1. Son (s) Status:Active Comments:3. Brother (s) Status:Active Comments:8. Some with CAD; 3 with CABG; Youngest was 50 when dx; 1 with cancer; 1 with chronic leukemia Daughter (s) Status:Active Comments:4. Father Status:Active Comments:d. 56 y o; CVA; Mother Status:Active Comments:d. 95; Sister (s) Status:Active Comments:1. Son (s) Status:Active Comments:3. Brother (s) Status:Active Comments:8. Some with CAD; 3 with CABG; Youngest was 50 when dx; 1 with cancer; 1 with chronic leukemia Daughter (s) Status:Active Comments:4. Father Status:Active Comments:d. 56 y o; CVA; Mother Status:Active Comments:d. 95; Sister (s) Status:Active Comments:1. Son (s) Status:Active Comments:3. Brother (s) Status:Active Comments:8. Some with CAD; 3 with CABG; Youngest was 50 when dx; 1 with cancer; 1 with chronic leukemia Daughter (s) Status:Active Comments:4. Father Status:Active Comments:d. 56 y o; CVA; Mother Status:Active Comments:d. 95; Sister (s) Status:Active Comments:1. Son (s) Status:Active Comments:3. Brother (s) Status:Active Comments:8. Some with CAD; 3 with CABG; Youngest was 50 when dx; 1 with cancer; 1 with chronic leukemia Daughter (s) Status:Active Comments:4. Father Status:Active Comments:d. 56 y o; CVA; Mother Status:Active Comments:d. 95; Sister (s) Status:Active Comments:1. Son (s) Status:Active Comments:3. Brother (s) Status:Active Comments:8. Some with CAD; 3 with CABG; Youngest was 50 when dx; 1 with cancer; 1 with chronic leukemia Daughter (s) Status:Active Comments:4. Father Status:Active Comments:d. 56 y o; CVA; Mother Status:Active Comments:d. 95; Sister (s) Status:Active Comments:1. Son (s) Status:Active Comments:3. Summary Purpose Advance Directives No Advanced Directives Records FoundNo Advanced Directives Records Found Additional Source Comments Care Teams (unrecognized sec tion and content) Team Status: Active Member Role Status Dates No Primary Care Physician Primary Care Provider Active Team Status: Inactive Member Role Status Dates JONE Rios Attending Provider Active Start: January 29, 2025 End: January 29, 2025 Team Status: Inactive Member Role Status Dates JONE Rios Attending Provider Active Start: January 29, 2025 End: January 29, 2025 JONE Rios Referring Provider Active Start: January 29, 2025 End: January 29, 2025 Team Status: Inactive Member Role Status Dates Dr. Kaylah Chris DO Attending Provider Activ e Start: February 02, 2025 End: February 02, 2025 No Primary Care Physician Primary Care Provider Active Start: February 02, 2025 End: February 02, 2025 No Primary Care Physician Referring Provider Active Start: February 02, 2025 End: February 02, 2025 Team Status: Inactive Member Role Status Dates JONE Rios Attending Provider Active Start: February 02, 2025 End: February 02, 2025 JONE Rios Referring Provider Active Start: February 02, 2025 End: February 02, 2025 No Primary Care Physician Primary Care Provider Active Start: February 02, 2025 End: February 02, 2025 Team Status: Active Member Role/Relationship Status Dates No Primary Care Physician Primary Care Provider Active Team Status: Inactive Member Role/Relationship Status Dates JONE Rios Attending Provider Active Start: January 29, 2025 End: January 29, 2025 Team Status: Inactive Member Role/Relationship Status Dates JONE Rios Attending Provider Active Start: January 29, 2025 End: January 29, 2025 JONE Rios Referring Provider Active Start: January 29, 2025 End: January 29, 2025 Team Status: Inactive Member Role/Relationship Status Dates Dr. Kaylha Chris DO Attending Provider Activ e Start: February 02, 2025 End: February 02, 2025 No Primary Care Physician Primary Care Provider Active Start: February 02, 2025 End: February 02, 2025 No Primary Care Physician Referring Provider Active Start: February 02, 2025 End: February 02, 2025 Team Status: Inactive Member Role/Relationship Status Dates JONE Rios Attending Provider Active Start: February 02, 2025 End: February 02, 2025 JONE Rios Referring Provider Active Start: February 02, 2025 End: February 02, 2025 No Primary Care Physician Primary Care Provider Active Start: February 02, 2025 End: February 02, 2025 Team Status: Inactive Member Role/Relationship Status Dates No Primary Care Physician Primary Care Provider Active Start: March 27, 2025 Dr. Dione Barnes MD Attending Provider Active Start: March 27, 2025 Team Status: Inactive Member Role/Relationship Status Dates No Primary Care Physician Primary Care Provider Active Start: May 25, 2025 End: May 25, 2025 No Primary Care Physician Referring Provider Active Start: May 25, 2025 End: May 25, 2025 Dr. Dione Barnes MD Attending Provider Active Start: May 25, 2025 End: May 25, 2025 Team Status: Inactive Member Role/Relationship Status Dates No Primary Care Physician Primary Care Provider Active Start: May 25, 2025 End: May 25, 2025 No Primary Care Physician Referring Provider Active Start: May 25, 2025 End: May 25, 2025 Dr. Kaylah Chris DO Attending Provider Activ e Start: May 25, 2025 End: May 25, 2025 Team Status: Inactive Member Role/Relationship Status Dates No Primary Care Physician Primary Care Provider Active Start: March 27, 2025 Dr. Dione Barnes MD Attending Provider Active Start: March 27, 2025 Team Status: Inactive Member Role/Relationship Status Dates No Primary Care Physician Primary Care Provider Active Start: May 25, 2025 End: May 25, 2025 No Primary Care Physician Referring Provider Active Start: May 25, 2025 End: May 25, 2025 Dr. Dione Barnes MD Attending Provider Active Start: May 25, 2025 End: May 25, 2025 Team Status: Inactive Member Role/Relationship Status Dates No Primary Care Physician Primary Care Provider Active Start: May 25, 2025 End: May 25, 2025 No Primary Care Physician Referring Provider Active Start: May 25, 2025 End: May 25, 2025 Dr. Kaylah Chris DO Attending Provider Activ e Start: May 25, 2025 End: May 25, 2025 Team Status: Inactive Member Role/Relationship Status Dates No Primary Care Physician Primary Care Provider Active Start: June 11, 2025 End: June 11, 2025 No Primary Care Physician Referring Provider Active Start: June 11, 2025 End: June 11, 2025 Dr. Dione Barnes MD Attending Provider Active Start: June 11, 2025 End: June 11, 2025 Goals (unrecognized section and content) Goals may be documented in a n alternate sectionGoals may be documented in an alternate sectionGoals may be documented in an alternate sectionGoals may be documented in an alternate sectionGoals may be documented in an alternate section INFORMATION SOURCE (unrecogn ized section and content) DATE CREATED AUTHOR 06/30/2025 [facility] DATE CREATED AUTHOR AUTHOR'S ETHAN ATION 08/01/2025 [facility] FOR RECORDS PERTAINING TO PATIENTS WHO ARE OR HAVE BEEN ENROLLED IN A CHEMICAL DEPENDENCY/SUBSTANCEABUSE PROGRAM, SOME INFORMATION MAY BE OMITTED. This clinical summary was aggregated from multiple sources. Caution should be exercised in using it in the provision of clinical care. This summary normalizes information from multiple sources, and as a consequence, information in this document may materially change the coding, format and clinical context of patient data. In addition, data may be omitted in some cases. CLINICAL DECISIONS SHOULD BE BASED ON THE PRIMARY CLINICAL RECORDS. [employer] provides no warranty or guarantee of the accuracy or completeness of information in this document.
[2025-09-14] MEDS: Lactated Ringers 1,000 ML 40 ML IV (06:25)
[2025-09-14] MEDS: Magnesium 1 GM over 15 mins IV (06:26)
[2025-09-14] MEDS: Scopolamine 1mg/72hr Patch 1 PATCH TD (06:27)
[2025-09-14 06:32] LABS: Hematocrit 42.6 % (37-47); Hemoglobin 14.0 g/dL (12.0-15.0); Mean Corp Hgb Conc 32.9 g/dL (32-36); Mean Corpuscular Volume 89.7 fL (81-99); Mean Platelet Vol. 10.4 fl (6.2-12.0); Platelet Count 333 K/mm3 (150-450); RBC Distribution Width CV 13.2 % (11.6-14.6); RBC Distribution Width SD 42.9 fl (35.1-43.9); Red Blood Count 4.75 M/mm3 (4.2-5.4); White Blood Count 13.8 K/mm3 (4.4-11.0)
--- NOTE | 2025-09-14 06:41 | PCM.PRE.AN2 ---
ASA Classification* ASA Classification ASA Classification: 2 Assessment & Plan Anesthesia* Anesthesia Assessment Anesthesia Assessment: Discussed sedation and/or anesthesia options, risks, benefits, and alternatives with patient/parents/legal guardian/POA. Questions invited. The patient/parents/legal guardian/POA seems to understand and agrees to proceed with anesthesia plan. Reviewed the physical assessment, medical history, allergy history and patient home medications list prior to surgery/procedure/anesthetic and documented any changes. Performed airway and anesthesia risk assessments. Anesthesia Type Anesthesia Type: General History Source History Obtained from:: Patient and Chart Anesthesia Focused Assessment* Temperature: 98.2 F Pulse Rate: 89 Blood Pressure: 174/94 Respiratory Rate: 16 Pulse Ox: 94 Oxygen Delivery Method: Room Air Airway Assessment Mouth opens: >3 cm Mallampati Score: III Teeth Condition: Intact Neck Range of motion (ROM): Limited ROM (Somewhat Decreased) Labs Anesthesia Preop lab: CBC WBC, (4.4-11.0) 13.8 K/mm3 H Today, 06:20 RBC, (4.2-5.4) 4.75 M/mm3 Today, 06:20 Hgb, (12.0-15.0) 14.0 g/dL Today, 06:20 Hct, (37-47) 42.6 % Today, 06:20 Plt Count, (150-450) 333 K/mm3 Today, 06:20 CHEMISTRY Potassium, (3.3-5.1) 4.1 mmol/L 06/06/25, 09:02 Sodium, (133-145) 140 mmol/L 06/06/25, 09:02 Magnesium, (1.5-2.2) 2.3 mg/dL H 06/06/25, 09:02 BUN, (4-19) 10 mg/dL 06/06/25, 09:02 Creatinine, (0.70-1.20) 0.72 mg/dL 06/06/25, 09:02 Glucose, (70-99) 100 mg/dL H 06/06/25, 09:02 COAG Pre-Assessment Diagnosis/Proposed Procedure Planned Operative Procedure(s): (B) ERAS, Hysterectomy, Total Vaginal, Bilateral Salpingo-oophorectomy (B) Repair, Anterior & Posterior, SSLF with Dermis, Possible Sling, Cysto and Ureteral Catheterization Anesthesia History Anesthesia History - green chainer: Anesthesia History - green chainer Hx Hospitalization No 08/31/25 10:56 Any Problems With Anesthesia Yes: PONV 08/31/25 10:56 Cholinesterase deficiency No 08/31/25 10:56 You/Your Family Experience No 08/31/25 10:56 fever (hyperthermia) with Relationship Recent Exposure to Contagious No 09/14/25 06:02 Disease Does patient have nerve No 08/31/25 10:56 stimulator Patient instructed to have device shut off --Does patient have Pacemaker No 09/14/25 06:04 or ICD? When Was Last Pacemaker Check QUESTION #4 FULL TEXT: You/Your Family Experience fever (hyperthermia) with Anesthesia Last Oral Intake Last Oral intake: Last Oral Intake NPO since 04:30 09/14/25 06:04 Meds taken in AM with sips of No 09/14/25 06:04 water? Meds patient instructed to take am of surgery Any additional information?: Yes NPO since: 04:30 (Patient took her preop Ensure at 4:30 AM.) PONV PONV - green chainer: PONV - green chainer Female Yes 08/31/25 10:56 HX of Motion Sickness No 08/31/25 10:56 HX of N/V After Surgery Yes 08/31/25 10:56 Non-Smoker Yes 08/31/25 10:56 Duration of Surgery greater Yes 08/31/25 10:56 than 60 minutes Number of Risk Factors 4 08/31/25 10:56 PONV Score Severe Risk 08/31/25 10:56 Height & Weight Height & Weight: Anesthesia: Height & Weight Height 4 ft 11 in 09/14/25 06:04 Weight: 75.478 kg 09/14/25 06:04 Body Mass Index (BMI) 33.6 09/14/25 06:04 Respiratory Assessment Respiratory Assessment - green chainer: Respiratory Tract Infection Hx - green chainer Hx Respiratory Tract Infection No 08/31/25 10:56 Any additional information?: Yes Hx Respiratory Tract Infection: Yes History of Anesthesia Respiratory Infection details: Patient had a recent flu symptoms. Better now. Lungs are clear. STOP Sleep Apnea STOP Sleep Apnea - green chainer: STOP Sleep Apnea - green chainer Hx Hypertension No 08/31/25 10:56 Hx Sleep Apnea No 08/31/25 10:56 CPAP BIPAP Do you snore loudly (louder No 08/31/25 10:56 than talking or can be heard Do you often feel tired/ No 08/31/25 10:56 fatigued/ sleepy during daytime? Has anyone observed you stop No 08/31/25 10:56 breathing during sleep? STOP Results Negative 08/31/25 10:56 QUESTION #5 FULL TEXT : Do you snore loudly (louder than talking or can be heard through closed doors)? Tobacco Use History Tobacco Use History - green chainer: Tobacco Use History - green chainer Tobacco Use Smoking Status Never smoker 08/31/25 10:56 Hx Tobacco Use No 08/31/25 10:56 Years Smoking Packs Smoked per Day Smoking Cessation Date was within the last 15 years Hx Smoking Cessation Date Hx Smoking Cessation Counseling Hematologic Medial History Hematologic Hx - green chainer: Hematologic Medical Hx - schedule maker Hx of Blood Transfusion No 08/31/25 10:56 Hx of Transfusion in last 3 No 08/31/25 10:56 Months Date of Last Transfusion (if within last 3 months) Ever experience any problems No 08/31/25 10:56 with transfusion(s)? Specify any problems Hx of Preganancy in last 3 No 08/31/25 10:56 Months Nurse Filling Out Transfusion SHERRI 08/31/25 10:56 & Questions: Date: 08/31/25 08/31/25 10:56 Time: 10:56 08/31/25 10:56 Patient unable to answer at this time (ie. confused, unrespo /Reproduction History /Reproductive History - green chainer: /Reproductive Hx- green chainer Hx Now No 08/31/25 10:56 Gestational Age (in weeks): EDC: Hx Hx Para Hx Section SAB No 08/31/25 10:56 Does the father of the baby or his family experience fever w Father of the baby Malignant Hypertension history comment Active Medications Active Medications: Current Medications Generic Name Dose Route Start Last Admin Trade Name Freq PRN Reason Stop Dose Admin Acetaminophen 1,000 mg 09/14/25 07:30 09/14/25 06:26 Acetaminophen 500 Mg Tablet PO 09/14/25 07:31 1,000 mg PREOP ONE Administration Celecoxib 400 mg 09/14/25 07:30 09/14/25 06:26 Celecoxib 200 Mg Capsule PO 09/14/25 07:31 400 mg PREOP ONE Administration Gabapentin 600 mg 09/14/25 07:30 09/14/25 06:27 Gabapentin 600 Mg Tablet PO 09/14/25 07:31 600 mg PREOP ONE Administration Lactated Ringer's 1,000 mls @ 40 mls/hr 09/14/25 07:30 09/14/25 06:25 IV 40 mls/hr .Q25H FREYA Administration Cefazolin Sodium 2 gm/ Sodium 110 mls @ 150 mls/hr 09/14/25 07:30 Chloride IV 09/14/25 08:13 INTRAOP ONE Lactated Ringer's 1,000 mls @ 70 mls/hr 09/14/25 07:30 IV .[id number] FREYA Magnesium Sulfate 1 gm/ 102 mls @ 408 mls/hr 09/14/25 07:30 09/14/25 06:26 Dextrose IV 09/14/25 07:44 408 mls/hr PREOP ONE Administration Insulin Human Lispro 0 unit 09/14/25 07:30 Insulin Lispro 100 Unit/Ml Insuln.Pen SC 09/14/25 18:00 Q4H PRN PRN BG >/= 180, SEE PROTOCOL Protocol Ondansetron HCl 4 mg 09/14/25 07:30 Ondansetron 4 Mg/2 Ml Vial IV 09/14/25 07:31 INTRAOP ONE Scopolamine HBr 1 patch 09/14/25 07:30 09/14/25 06:27 Scopolamine 1mg/72hr Patch TD 09/14/25 07:31 1 patch PREOP ONE Administration PFSH Medical History Rectocele Nocturia Vaginal atrophy Wears glasses Post-menopausal History of ulceration Non-smoker Cholecystitis Home Medications ?Medication ?Instructions ?Recorded ?Last Taken ?Type essential nutrients 2 ea PO DAILY 06/01/25 09/07/25 History hawthorn swift 360 mg capsule 360 mg PO DAILY 06/01/25 09/07/25 History multivitamin (Daily Multi-Vitamin 3 tab PO DAILY 06/01/25 09/07/25 History tablet) transfer factor 2 ea PO DAILY 06/01/25 09/07/25 History cefdinir 300 mg capsule 300 mg PO BID #14 caps 09/06/25 09/13/25 18:00 Rx Allergy/AdvReac Type Severity Reaction Status Date / Time No Known Allergies Allergy Verified 09/14/25 06:01 Surgical History S/P cholecystectomy Social History adopted: No household members: spouse housing: house number of children: 7 current occupational status: unemployed pets and animals: No history of recent travel: Yes ([place]) out of state: Yes out of country: No sexually active: Yes Smoking Status: Never smoker second hand exposure: No alcohol intake: never substance use type: does not use well-balanced diet: daily or most days caffeine: Yes Type: coffee Number of servings: 2 eating out: 1-3 times/week during the past year weight has: remained stable what type of physical activity do you participate in: none dago/yazidism: [facility] seatbelt use: sometimes do you feel safe at home: Yes additional social history: - Scooter PIERCE Review of Systems (Anesthesia) ROS Narrative System reviewed and no additional complaints, except as documented. Physical Exam Resp clear to auscultation bilaterally
--- NOTE | 2025-09-14 07:26 | HP.PCM_ITS ---
History and Physical Date of Admission: 09/14/25 Date of Service: 09/05/25 MR#: [id number] Acct: [id number] Name: BLANCA NY Rep #: [id number] : 1955 Provider: Dr. Dione Barnes MD Age/Sex: 69/F Location: [facility] [place] Status: Signed Intake Vital Signs 06/11/2511:28 09/05/2514:19 Height 5 ft 5 ft Weight: 170 lb BMI 33.2 BP 143/97 H Pulse 93 Intake Visit Reasons: Pre op Chief Complaint: preoperation visit Bow Stapler Required: No Accompanied by: self Is patient in pain?: No Allergies No Known Allergies Allergy (Verified 09/14/25 06:01) Medications ?Medication ?Instructions ?Recorded ?Confirmed ?Type essential nutrients 2 ea PO DAILY 06/01/25 09/14/25 History hawthorn swift 360 mg capsule 360 mg PO DAILY 06/01/25 09/14/25 Histor y multivitamin (Daily Multi-Vitamin 3 tab PO DAILY 06/01/25 09/14/25 History tablet) transfer factor 2 ea PO DAILY 06/01/25 09/14/25 History cefdinir 300 mg capsule 300 mg PO BID #14 caps 09/06/25 09/14/25 Rx Have you fallen in the past year?: No Nurse's Note: denies sx of infection today reports her condition as about the same [facility] Medical History Rectocele Nocturia Vaginal atrophy Wears glasses Post-menopausal History of ulceration Non-smoker Cholecystitis Surgical History S/P cholecystectomy Social History adopted: No household members: spouse housing: house number of children: 7 current occupational status: unemployed pets and animals: No history of recent travel: Yes ([place]) out of state: Yes out of country: No sexually active: Yes Smoking Status: Never smoker second hand exposure: No alcohol intake: never substance use type: does not use well-balanced diet: daily or most days caffeine: Yes Type: coffee Number of servings: 2 eating out: 1-3 times/week during the past year weight has: remained stable what type of physical activity do you participate in: none dago/jehovah's witness: [facility] seatbelt use: sometimes do you feel safe at home: Yes additional social history: - Scooter JR HPI HPI Urology Chief Complaint: preoperation visit Details: BLANCA NY, is a 69 F. The patient is here for preoperative history and physical prior to anterior and posterior repair, possible bilateral sacrospinous ligament fixation with dermis, possible midurethral sling, cystoscopy with bilateral ureteral catheterization. There are no new symptoms since the last visit. The procedure, recovery and expectations were explained. The risks, benefits and alternatives were discussed, including but not limited to, the risks of anesthesia, bleeding, infection, injury, pain and the need for further intervention. We have discussed the risk of exposure to and/or potential harm posed by the COVID-19 virus with having a surgery/procedure at this time. A joint decision was made at this time to proceed with the scheduled surgery/procedure as indicated on the consent form. ROS Const Constitutional: No chills, fatigue, fever(s), headache(s), night sweats, weakness, weight change, abnormal sleep pattern or change in appetite Eyes Eyes: No change in vision ENT ENT: No headache(s) or dry mouth Resp Respiratory: No cough, chest congestion, shortness of breath or wheezing Cardio Cardiology: Positive for other (No chest pain.); No shortness of breath, irregular heart rhythm or lightheadedness Gastro GI: Positive for other (No nausea.); No abdominal pain, change in bowel habits, constipation, diarrhea or vomiting Musc Musculoskeletal: No abnormal gait Skin Skin: No yellowing of the eye, lesions, itchy eyes, rash or skin ulcer Neuro Neurology: No abnormal gait, confusion, dizziness, weakness, headache(s) or memory loss Psych Psychiatric: No abnormal sleep pattern, No change in appetite, No confusion and No memory loss Endo Endocrine: No fatigue, increased thirst/drinking or weight change Aller/Imm Allergy/Immunologic: No itchy eyes or wheezing Travon/Lymp Hematologic/Lymphatic: No easy bleeding, easy bruising or enlarged lymph nodes Exam Const General: cooperative, healthy appearing, comfortable and no acute distress HENMT Head: normocephalic and atraumatic Ears: hearing grossly normal bilaterally and external ears normal Nose: external nose normal Eyes General: appearance normal, both eyes and all related structures Neck Neck: normal visual inspection and trachea midline Chest Chest palpation & inspection: normal inspection of the chest Resp Effort & Inspection: normal respiratory effort, able to speak in complete sentences and symmetric chest movement Cardio Rate: regular rate GI Inspection: normal to inspection Palpation: soft and nontender General: No CVA tenderness Skin General: no rashes or lesions noted Neuro General: patient alert, patient awake, patient oriented x3 and CN's II-XI intact bilaterally Extrem General: normal to inspection Psych Appearance: grossly normal and well kempt Mental Status: mental status grossly normal Results POC UA Auto w/o Microscopy Office Urine Color ? Last Edit by Paulina Polo on 09/05/25 14:24 Office Urine Clarity ? Last Edit by Paulina Polo on 09/05/25 14:24 Office Urine Glucose Negative Last Edit by Paulina Pool on 09/05/25 14:24 Office Urine Ketones Negative Last Edit by Paulina Polo on 09/05/25 14:24 Office Urine Bilirubin Negative Last Edit by Paulina Polo on 09/05/25 14:2 4 Office Urine Urobilinogen 0.2 mg/dL Last Edit by Paulina Polo on 09/05/25 14:24 Off Ur Spec [place] 1.020 Last Edit by Paulina Polo on 09/05/25 14:24 Office Urine pH 6 Last Edit by Paulina Polo on 09/05/25 14:24 Office Urine Protein Trace Last Edit by Paulina Polo on 09/05/25 14:24 Office Urine Blood Negative Last Edit by Paulina Polo on 09/05/25 14:24 Office Urine Blood Hemolyzed Negative Last Edit by Paulina Polo on 5 14:24 Office Urine Nitrate Negative Last Edit by Paulina Polo on 09/05/25 14:24 Off Ur Leukocytes Negatve Last Edit by Paulina Polo on 09/05/25 14:24 Coding Level of Care Code Off vis,est,level 4 Diagnoses Complete uterine prolapse with prolapse of anterior vaginal wall N81.3 Rectocele N81.6 Vaginal atrophy N95.2 Nocturia R35.1 Additional Codes Intake - Is patient in pain?: No (1126F) Assessment and Plan Assessment and Plan (1) Complete uterine prolapse with prolapse of anterior vaginal wall: Status: Acute (2) Rectocele: Status: Acute (3) Vaginal atrophy: Status: Acute (4) Nocturia: Status: Acute Orders: Orders POC UA Auto w/o Microscopy 09/05/25 R35.1 - Nocturia Plan continue with plans for surgical intervention vaginal estrogen cream Clinical Quality Measures Falls Risk Screening/Assistive Devices Have you fallen in the past year?: No 09/14/25 0725 <Electronically signed by Dione Barnes MD> Date Dione Barnes MD
--- NOTE | 2025-09-14 07:30 | HYST_PTH ---
PATIENT: BLANCA NY LOC: [facility] – [place] U#:[id number] AGE/SX: 69/F ROOM: RE09/14/[address]: Dr. Kaylah Chris DO : 1955 BED: DIS: 09/15/2025 SPEC #: [id number] RECD: 09/14/25 12:33 STATUS: KRISSY REMyah #: [id number] ROBERTO: 09/14/25 07:[address]: Kaylah Chris DEPT: SURGICAL PATHOLOGY RECD BY: Joe Dalton ENTERED: 09/14/25 14:15 SP TYPE: HYSTERECT OTHR DR: MD Noemi Scott MD Tissues: A - Uterus, NOS Procedures: Surgery Specimen Level V HEADER OPERATION: ERAS, hysterectomy, total vaginal, bilateral salpingectomy PRE-OP DIAGNOSIS: Rectocele with complete uterovaginal prolapse, vaginal atrophy, nocturia TISSUE SUBMITTED: A. Uterus, cervix, bilateral fallopian tubes MICROSCOPIC DIAGNOSIS A. Uterus, fallopian tubes, hysterectomy and bilateral salpingectomy: - Cervix: hyperkeratosis, dilated endocervical glands. - Endometrium: proliferative phase, polyp. - Myometrium: leiomyoma (0.3 cm). - Bilateral Fallopian tubes: no specific pathologic change. MICROSCOPIC DESCRIPTION Slides are reviewed. GROSS DESCRIPTION A. Received in formalin labeled with the patient's name and date of . Designated as uterus, cervix, bilateral fallopian tubes is a 99.8 g, 9.2 x 5.0 x 3.4 cm uterus with detached adnexa. The serosa is sol with focal erythema. The attached cervix is sol-white, dry and markedly wrinkled, measuring 4.4 x 4.0 cm; the 0.4 cm os is stenotic but partially probe patent. The specimen is inked as follows: [id number] Opening reveals a stenotic and slightly irregular endocervical canal and lower uterine segment; the 5.0 x 2.2 cm endometrial canal is lined by red to light brown, granular endometrium that measures up to 0.2 cm thick. There is a 1.2 x 0.9 x 0.3 cm sol-white, cystic polyp within the anterior endometrial canal with somewhat mucoid cut surfaces and possible extension of <0.1 cm into the underlying myometrium. The myometrium is sol and somewhat fibrotic, measuring up to 1.6 cm thick with a 0.3 cm sharply circumscribed nodule in the post wall. The sol-red to purple fallopian tubes are fimbriated and measure 7.2 x 0.4 cm and 3.2 x 0.4 cm. Irrigation System Operator sections are submitted as follows: A1: Anterior cervixA2: Posterior cervixA3: Anterior endomyometrium with polyp and possible, focal myometrial extensionA4-A5: Anterior endometrium with remaining polypA6: Posterior endomyometrium including stenotic lower uterine segment and possible leiomyomaA7-A8: Fallopian tubes [place] 09/17/2025 CPT:96322
--- NOTE | 2025-09-14 07:31 | PCM.HP.BLA ---
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 Required: No Is patient in pain?: No Allergies No Known Allergies Allergy (Verified 05/25/25 14:46) Medications ?Medication ?Instructions ?Recorded ?Confirmed ?Type natural vitamins PO 01/29/25 05/25/25 History Post menopausal: No Patient : No : No PFSH Medical History Cholecystitis Surgical History S/P cholecystectomy Social History adopted: No household members: spouse housing: house number of children: 7 current occupational status: unemployed pets and animals: No history of recent travel: Yes ([place]) out of state: Yes out of country: No sexually active: Yes Smoking Status: Never smoker second hand exposure: No alcohol intake: never substance use type: does not use well-balanced diet: daily or most days caffeine: Yes Type: coffee Number of servings: 2 eating out: 1-3 times/week during the past year weight has: remained stable what type of physical activity do you participate in: none dago/hindu: [facility] seatbelt use: sometimes do you feel safe at home: Yes additional social history: - Scooter JR HPI Hysterectomy Molly santos Details: BLANCA NY is a 69 year old (all vaginal deliveries) who presents for discussion about prolpase. She states that it started in 1999 after the of her last child that was 9 pounds. She has to push her self back in to completely empty her bladder and she is sick of dealing with it. She is now ready for a hysterectomy. She saw Dr. Barnes today an surgery is scheduled together on 06/15/25. Ultrasound showed: FINDINGS: Transabdominal and transvaginal imaging The uterus measures 6.1 x 5 x 3.1 cm. 0.9 x 1 x 0.9 cm uterine fibroid noted. Endometrial stripe measures 2-4 mm. Cervix appears within limits. The right ovary is not visualized. The left ovary measures 2.5 x 2.7 x 2.4 cm and contains a couple of 3 mm and less echogenic foci possible calcification or fat. No evidence of adnexal mass. No free fluid seen. Bladder volume 72 cc. US/Pelvic w/ Transvaginal IMPRESSION: Small 1 cm uterine fibroid. The right ovary is not identified. History 7 Elective abortions Hx Para Spontaneous abortions Hx # Term Pregnancies Ectopic pregnancies Hx # Pregnancies Multiple births # of living children 7 ROS Const ROS Unobtainable: All systems reviewed & are unremarkable except as noted in H Resp Resp: Reports system reviewed and no additional complaints, except as documented; Denies cough GI GI: Reports as per HPI Psych Psych: Reports system reviewed and no additional complaints, except as documented Exam Const General: cooperative, healthy appearing, comfortable and no acute distress Resp Effort & Inspection: normal respiratory effort Skin General: no rashes or lesions noted Psych Appearance: grossly normal Speech and Movement: speech and movement normal Results POC UA Auto w/o Microscopy Office Urine Color ? Last Edit by Paulina Polo on 05/25/25 13:20 Office Urine Clarity ? Last Edit by Paulina Polo on 05/25/25 13:20 Office Urine Glucose Negative Last Edit by Paulina oPlo on 05/25/25 13:20 Office Urine Ketones Negative Last Edit by Paulina Polo on 05/25/25 13:20 Office Urine Bilirubin Negative Last Edit by Paulina Polo on 05/25/25 13:20 Office Urine Urobilinogen Negative Last Edit by Paulina Polo on 05/25/25 13:20 Off Ur Spec [place] 1.020 Last Edit by Paulina Polo on 05/25/25 13:20 Office Urine pH 6 Last Edit by Paulina Polo on 05/25/25 13:20 Office Urine Protein Trace Last Edit by Paulina Polo on 05/25/25 13:20 Office Urine Blood Negative Last Edit by Paulina Polo on 05/25/25 13:20 Office Urine Blood Hemolyzed Negative Last Edit by Paulina Polo on 05/25/25 13:20 Office Urine Nitrate Negative Last Edit by Paulina Polo on 05/25/25 13:20 Off Ur Leukocytes Negatve Last Edit by Paulina Polo on 05/25/25 13:20 Coding Level of Care Code Off vis,est,level 4 Diagnoses Rectocele with complete uterovaginal prolapse N81.4 Assessment and Plan Assessment and Plan (1) Rectocele with complete uterovaginal prolapse: Status: Acute Comment: Stage 4 Plan: After discussing the patient's diagnosis and treatment plan options, patient wishes to proceed with surgical management. I have discussed with the patient the risks, benefits, and alternatives of the procedure which include but are not limited to risks of anesthesia, bleeding, infection, possible damage to bowel, bladder, or surrounding vasculature which could lead to additional surgery to evaluate any complications. Patient agrees to procedure and wishes to proceed. ACOG/uptodate references given for additional information regarding procedure. plan is for a total vaginal hysterctomy, possible bilateral salpingo-oophorectomy.
--- NOTE | 2025-09-14 07:31 | PCM.DC ---
Discharge Instructions DC O2, CPAP, BIPAP needs Home O2 Discharge instructions: No Dressing / Incision Discharge Activity: Return to Normal Activity, May Not Drive (while taking narcotic pain medications.) and May Shower May resume sexual activity in: 6-8 weeks Dressing / Incision Call your doctor if your incision/area has: Continuous Slow Oozing, Sudden Increased Bleeding, Increased Pain/ Swelling, Increased Redness and Foul Smelling Discharge Call your doctor if you observe: Fever of 101 or Higher, Inability to urinate, Inability to have a bowel movement and Using more than 1 pad per hour Follow Up Care Please Follow Up With: Kaylah Chris DO Test Results: Test results from this visit will be discussed in further detail at your follow-up appointment, if applicable. Discharge Plan Admission Primary Reason for Your Visit: ERAS- HYSTERECTOMY, TOTAL VAGINAL Attending Provider: Kaylah Chris Primary Care Provider: Noemi Bradley Consulting Providers: Dione Barnes Instructions Print Language: Wolof Discharge Orders/Prescriptions Prescriptions: New oxycodone-acetaminophen 5-325 mg tablet 1 tab PO Q8H PRN (Reason: pain) 3 Days Qty: 10 0RF ondansetron 4 mg tablet,disintegrating 4 mg PO Q8H PRN (Reason: nausea and vomiting) Qty: 10 0RF Continued multivitamin [Daily Multi-Vitamin] Tablet 3 tab PO DAILY Patient Comments: Super Greens hawthorn swift 360 mg capsule 360 mg PO DAILY transfer factor 2 ea PO DAILY Patient Comments: For Life essential nutrients 2 ea PO DAILY Patient Comments: [employer] brands cefdinir 300 mg capsule 300 mg PO BID Qty: 14 0RF Referrals / Follow Up: Care Physician,No Primary [Non-Staff] Disposition Disposition (needs filled in before D/C Order can be placed): Home, Self Care
[2025-09-14] MEDS: Midazolam 2 MG/2 ML Syringe IV (07:35)
[2025-09-14] MEDS: Lidocaine 1% (5 ml sdv) 5 ML Vial IV (07:41)
[2025-09-14] MEDS: metroNIDAZOLE 500 MG/100 ML BAG 100 MG IV (08:13)
--- NOTE | 2025-09-14 09:00 | OP.PCM_ITS ---
Multi Select Codes Urinary/Genital Urinary/Genital CPT Codes: 58720 TVH+BS/O <250gr uterus Operative Report (Standard) Operative Information Date of Procedure: 09/14/25 Pre-Operative Diagnosis: complete uterovaginal prolapse Post-Operative Diagnosis: complete uterovaginal prolapse Surgery/Procedure Performed: vaginal hysterectomy, bilateral salpingectomy channel cementer insole machine: Yes Supervisor Cap [employer] Hat Production: Jaymie Whitaker Tasks completed by first front ventilator: Retracting Additional offset assistant press operator?: No Type of Anesthesia: General RN Documented Start/Stop Times: Operation Date: 09/14/25 07:30 Case Time Into Pre-Op 09/14/25 05:39 Out of Pre-Op 09/14/25 07:31 Anesthesia Start 09/14/25 07:35 Into Room 09/14/25 07:35 Procedure Start 09/14/25 08:01 Procedure Start Time: 08:01 Procedure Stop Time: 08:56 Select all DRAINS/GRAFTS/IMPLANTS that apply: None Special Medications: none Estimated Blood Loss: 50cc Specimen collected: Yes Description of specimen(s) removed: uterus, cervix, bilateral fallopian tubes Description of surgery: Patient was taken to the operating room and was placed under general anesthesia was prepped and draped in normal sterile fashion in the dorsal lithotomy position. Preoperative antibiotics and SCDs and Patel catheter was placed through the urethra. Complete prolapsed of the uterus and vaginal were present. The anterior and posterior lip of the cervix was grasped with 2 Manoj clamps and circumferentially injected with lidocaine with epinephrine. A circumferential incision was made with a scalpel and the posterior cul-de-sac was entered into sharply and a longneck speculum was placed. The anterior cul-de-sac was also dissected down and entered into sharply and the uterosacral ligaments were clamped cut and suture ligated bilaterally followed by the cardinal ligaments which were Clamped cut and suture ligated bilaterally with 0 Vicryl suture. The uterus serially descended and progressive bites were taken bilaterally up to the level of the utero-ovarian ligament bilaterally which was clamped transected and double ligated with 0 Vicryl suture and 0 Vicryl free tie. Bilateral fallopian tubes and ovaries were well visualized and noted be within normal limits and the bilateral fallopian tubes were transected across the base with a ligasure and removed. Excellent hemostasis was noted. Posterior peritoneum was reapproximated with 1-0 Vicryl and a modified Lind stitch was placed through the posterior vaginal cuff and bilateral uterosacral ligaments across the posterior cul-de-sac skimming along to provide apical support to the vagina. The vagina was closed with [id number] 0 Vicryl pop offs including the posterior and anterior peritoneum in the reapproximation. Excellent hemostasis was noted. All instruments removed from the vagina clear urine was noted at the end of the procedure and a prolapse repair is now going to be performed by Dr. Barnes, dictated separately. Surgical Findings: normal appearing uterus, cervix, ovaries and fallopian tubes Complications Complications: No Admit VTE Documentation VTE Present on Admission: No VTE Mechan Device Prophylaxis: SCD's VTE Pharm Prophylaxis ordered?: Yes
[2025-09-14] MEDS: Bupiv/Epi 0.25% 30 ML Vial (09:18)
[2025-09-14] MEDS: fentaNYL 100 MCG/2 ML Ampul IV (10:22)
[2025-09-14] MEDS: Cefazolin 1 GM/5 ML Vial 4 GM IV (11:35)
--- NOTE | 2025-09-14 12:10 | PCM.POST.ANE ---
Anesthesia: Postop Eval I Current Vital Signs Temperature: 98.3 F Pulse Rate: 92 Blood Pressure: 105/74 Respiratory Rate: 16 Pulse Ox: 93 Oxygen Delivery Method: Nasal Cannula Oxygen Flow Rate (L/min): 3 Assessment Airway patent: Yes Spontaneous unlabored respirations: Yes Mental status: Asleep nausea: No Vomiting: No Anesthesia Complication: No Fluid Hydration Crystalloid volume administer (ml): 1,500 Total IV fluid infused: 1,500 Progress Note Anesthesia document: Postop Eval 1 completed: Yes
[2025-09-14] MEDS: Lactated Ringers @ 70 MLS/HR 70 ML IV (12:24)
--- NOTE | 2025-09-14 15:33 | OP.PCM_ITS ---
Multi Select Codes Urology Urology Charge Forwarding-multi code: 62644 Cysto Bladder w/ Ureteral Catheterizaion, 93097 Combined Anteroposterior Colporrhaphhy, 84932 Insert MESH/Pelvic FLR addon, 89294 Colpopexy Extraperiteoneal and Attention Gravel Machine Operator Operative Report (Standard) Operative Information Date of Procedure: 09/14/25 Pre-Operative Diagnosis: Complete utero vaginal prolapse with cystocele and rectocele Post-Operative Diagnosis: Same Surgery/Procedure Performed: Anterior repair, posterior repair with bilateral sacrospinous ligament fixation with dermis, cystoscopy with bilateral ureteral catheterization health insurance adjuster: Yes Audiology Doctor: Jaymie Whitaker Tasks completed by primary teaching assistant: Retracting Type of Anesthesia: General RN Documented Start/Stop Times: Operation Date: 09/14/25 07:30 Case Time Into Pre-Op 09/14/25 05:39 Out of Pre-Op 09/14/25 07:31 Anesthesia Start 09/14/25 07:35 Into Room 09/14/25 07:35 Procedure Start 09/14/25 08:01 Procedure End 09/14/25 11:45 Anesthesia End 09/14/25 11:59 Out of Room 09/14/25 11:59 Into Recovery 09/14/25 12:03 Out of Recovery 09/14/25 13:19 Procedure Start Time: 09:35 Procedure Stop Time: 11:45 Select all DRAINS/GRAFTS/IMPLANTS that apply: Graft Graft details: Dermis Estimated Blood Loss: 75cc Specimen collected: No Description of surgery: The patient is a 69-year-old female with severe prolapse presenting for surgical intervention in conjunction with hysterectomy per Dr. Lockhart. She was taken to the operating room and placed on the operating room table. Anesthesia monitored the head, neck, airway, IV access and vital signs throughout the case. Once anesthesia was appropriately administered, she was prepped and draped in usual sterile fashion. Dr. Lockhart performed her portion of the procedure. The cuff line was closed. The case was turned over to me. She was flattened and the Patel catheter was removed. The cystoscope was inserted through the urethra under direct visualization into the urinary bladder. The prolapse was so severe it was difficult to find the ureteral orifices and a gauze pessary was inserted in order to fully evaluate her ureters. They were found very close to the bladder neck and each 1 procurement intern was intubated gently with a 5 Amharic whistle- tip catheter which was easily advanced to 20 cm bilaterally without evidence of obstruction or injury. The bladder mucosa in its entirety was also visualized revealing no evidence of injury or foreign object. At this time the cystoscope was removed and the Patel catheter was reinserted. The cuff line sat very anteriorly in position and the decision was made to secure the apex from a posterior dissection. The submucosa was injected with local anesthetic for hydrostatic dissection and hemostatic control. A midline incision was made. Sharp and blunt dissection was performed bilaterally and the rectovaginal fascia was never identified. She had multiple areas of vascular varicosity and there was general oozing from the tissue. The dissection continued up to the apex approximately 1 cm from the cuff line. Bilaterally the dissection continued to the sacrospinous ligaments which were freed from surrounding tissues. Using the saffron device 2 sutures on each side were placed into the sacrospinous ligaments with care being taken to avoid surrounding tissue including vessels and the ureters. The sutures were then brought through the dermis which was tied into position and secured to the vaginal mucosa in full-thickness fashion using 2-0 Vicryl in the midline. Once the dermis was tied into position to the sacrospinous ligaments, the sutures were brought through the vaginal mucosa and tied again. The dermis was cut to fit her posterior vaginal wall and it was secured in circumferential fashion using interrupted 2-0 Vicryl. The perineal body was reconstructed using interrupted 3-0 PDS. When this was all complete the vaginal mucosa was closed using running interlocking 2-0 Vicryl. The Patel catheter was then removed and the cystoscope was reinserted revealing no evidence of injury. Once again the ureters were intubated with the whistle- tip catheter and there was no evidence of injury or obstruction on either side. The cystoscope was again removed and the Patel catheter was reinserted and the balloon was inflated with 10 cc of sterile water. This time attention was turned towards the anterior defect. This was very significant as well. The urethra was well supported to the pubic bone and the patient does not have stress incontinence in life or on urodynamic testing. The decision was made to leave her without a mid urethral sling. The anterior defect was isolated with Allis clamps and the submucosa was injected with lidocaine with epinephrine. A vertical midline incision was made. Sharp and blunt dissection was performed on both sides until the pubocervical fascia was identified. Dissection continued down to within 1 cm of the cuff line and also from the bladder neck. Following dissection, the vaginal wall was plicated using 3-0 PDS with care being taken to avoid entry into the urinary bladder or through the vaginal mucosa. A 2 layer closure was performed. Prior to closure of the vaginal incision, a third cystoscopic evaluation was performed along with ureteral catheterization once again revealing no evidence of injury or foreign body. At this time there was no pessary needed for prolapse reduction. The cystoscope was removed and the Patel catheter was reinserted. The vaginal incision was closed with running interlocking 2-0 Vicryl. The vagina was then packed with Premarin cream and vaginal packing. The size of her vaginal vault was still significant and required 1-1/2 rolls of packing. The Patel catheter was left in place. The patient was awakened and taken to the recovery room in good condition. There were no complications identified during this procedure. Surgical Findings: Dermis used posteriorly and sacrospinous ligament attachment performed posterio rly Complications Complications: No Admit VTE Documentation VTE Present on Admission: Yes VTE Mechan Device Prophylaxis: SCD's VTE Pharm Prophylaxis ordered?: Yes
--- NOTE | 2025-09-14 15:50 | DCINST_ITS ---
Discharge Instructions Diet Discharge Diet: No restrictions Activity Discharge Activity: May Shower May resume sexual activity in: 8 weeks Dressing / Incision Call your doctor if your incision/area has: Continuous Slow Oozing, Sudden Increased Bleeding, Increased Pain/ Swelling, Increased Redness and Foul Smelling Discharge Call your doctor if you observe: Fever of 101 or Higher, Inability to urinate, Inability to have a bowel movement and Using more than 1 pad per hour Additional Dressing/Incision Instructions:: continue vaginal estrogen right on the stitches Follow Up Care Please Follow Up With: Kaylah Chris DO Test Results: Test results from this visit will be discussed in further detail at your follow- up appointment, if applicable. Discharge Plan Admission Attending Provider: Kaylah Chris Primary Care Provider: Noemi Bradley Consulting Providers: Dione Barnes Instructions Print Language: Japanese Discharge Orders/Prescriptions Prescriptions: New oxycodone-acetaminophen 5-325 mg tablet 1 tab PO Q8H PRN (Reason: pain) 3 Days Qty: 10 0RF ondansetron 4 mg tablet,disintegrating 4 mg PO Q8H PRN (Reason: nausea and vomiting) Qty: 10 0RF Continued multivitamin [Daily Multi-Vitamin] Tablet 3 tab PO DAILY Patient Comments: Super Greens hawthorn swift 360 mg capsule 360 mg PO DAILY transfer factor 2 ea PO DAILY Patient Comments: For Life essential nutrients 2 ea PO DAILY Patient Comments: [employer] brands cefdinir 300 mg capsule 300 mg PO BID Qty: 14 0RF Referrals / Follow Up: Care Physician,No Primary [Non-Staff] Disposition Disposition (needs filled in before D/C Order can be placed): Home, Self Care
--- NOTE | 2025-09-14 20:16 | POSTOPAN2_ITS ---
Anesthesia Postop Eval I Sum Postop Eval Completion status Anesthesia document: Postop Eval 1 completed: Yes Anesthesia Postop Eval I Summary Anesthesia Postop Eval I Summary: Anesthesia Postop Eval I: Assessment Summary Airway patent Yes 09/14/25 12:11 MILLINERY DEPARTMENT [email or web address] Spontaneous unlabored Yes 09/14/25 12:11 MILLINERY DEPARTMENT [email or web address] respirations Mental status Asleep 09/14/25 12:11 MILLINERY DEPARTMENT [email or web address] nausea No 09/14/25 12:11 MILLINERY DEPARTMENT [email or web address] Vomiting No 09/14/25 12:11 MILLINERY DEPARTMENT [email or web address] Anesthesia Postop Eval I: Fluid Summary Crystalloid volume administer 1,500 09/14/25 12:11 MILLINERY DEPARTMENT [email or web address] (ml) Colloids volume administered ( ml) Blood Product volume administered (ml) Total IV fluid infused 1,500 09/14/25 12:11 MILLINERY DEPARTMENT [email or web address] Anesthesia Postop Eval I: Summary Notes Anesthesia Complication No 09/14/25 12:11 MILLINERY DEPARTMENT [email or web address] Anesthesia Complication Comment: Post-operative progress note Anesthesia: Postop Eval II Evaluation Mental status: Awake and Calm Pain Level: 2 nausea: No Vomiting: No Complications Anesthesia Complication: No
--- NOTE | 2025-09-14 20:16 | PCM.POSTANE2 ---
Anesthesia Postop Eval I Sum Postop Eval Completion status Anesthesia document: Postop Eval 1 completed: Yes Anesthesia Postop Eval I Summary Anesthesia Postop Eval I Summary: Anesthesia Postop Eval I: Assessment Summary Airway patent Yes 09/14/25 12:11 [email or web address] Spontaneous unlabored Yes 09/14/25 12:11 [email or web address] respirations Mental status Asleep 09/14/25 12:11 [email or web address] nausea No 09/14/25 12:11 [email or web address] Vomiting No 09/14/25 12:11 [email or web address] Anesthesia Postop Eval I: Fluid Summary Crystalloid volume administer 1,500 09/14/25 12:11 [email or web address] (ml) Colloids volume administered ( ml) Blood Product volume administered (ml) Total IV fluid infused 1,500 09/14/25 12:11 [email or web address] Anesthesia Postop Eval I: Summary Notes Anesthesia Complication No 09/14/25 12:11 [email or web address] Anesthesia Complication Comment: Post-operative progress note Anesthesia: Postop Eval II Evaluation Mental status: Awake and Calm Pain Level: 2 nausea: No Vomiting: No Complications Anesthesia Complication: No
[2025-09-15] MEDS: Lactated Ringers @ 70 MLS/HR 70 ML IV (01:05)
[2025-09-15 05:22] LABS: Hematocrit 35.8 % (37-47); Hemoglobin 11.5 g/dL (12.0-15.0); Mean Corp Hgb Conc 32.1 g/dL (32-36); Mean Corpuscular Volume 93.7 fL (81-99); Mean Platelet Vol. 10.4 fl (6.2-12.0); POSITIVE DIFFERENTIAL YES; POSITIVE MORPHOLOGY YES; Platelet Count 322 K/mm3 (150-450); RBC Distribution Width CV 13.7 % (11.6-14.6); RBC Distribution Width SD 46.4 fl (35.1-43.9); Red Blood Count 3.82 M/mm3 (4.2-5.4); White Blood Count 18.7 K/mm3 (4.4-11.0)
[2025-09-15 05:40] VITALS: BP 127/68; PULSE 83; RESP 20; TEMP 36.5; O2SAT 93
[2025-09-15 05:48] LABS: Anion Gap 9 (5-15); BUN 11 mg/dL (4-19); BUN/Creat Ratio 15.9 RATIO (10-20); Calcium,Total 8.4 mg/dL (7.6-11.0); Carbon Dioxide 23.2 mmol/L (21.0-32.0); Chloride 106 mmol/L (98-108); Estimated Creatinine Clearance 61.93 ml/min (50-250); Glucose 106 mg/dL (70-99); Potassium 4.1 mmol/L (3.3-5.1)
[2025-09-15 05:52] LABS: Scan Indicated on CBC? Y/N YES- FLAGS NOTED
[2025-09-15 07:56] VITALS: BP 115/74; PULSE 81; RESP 20; TEMP 36.8; O2SAT 92
[2025-09-15] MEDS: Ensure Plus High Protein 120 ML LIQUID PO ×2 (08:18→12:16)
--- NOTE | 2025-09-15 09:11 | PCM.PN.GU ---
Subjective Subjective Sitting up in bedside chair. No issues overnight. No nausea, tolerating oral intake. Sore but pain controlled. Objective Data Objective Data Vital Signs: Vital Signs Temp Pulse Resp BP Pulse Ox O2 Del Method O2 Flow Rate 98.3 F 81 20 H 115/74 92 Nasal Cannula 2 09/15/25 07:56 09/15/25 07:56 09/15/25 07:56 09/15/25 07:56 09/15/25 07:56 09/15/25 08:59 09/15/25 08:59 Oxygen Flow Rate (L/min) 2 Oxygen Delivery Method Nasal Cannula Weight: 166 lb 6.4 oz Body Mass Index (BMI) 33.6 Intake & Output: Intake and Output for Last 24 Hours 09/13/25 09/14/25 09/15/25 23:59 23:59 23:59 Intake Total 1802 / 1802 887.83 / 887.83 Output Total 1825 / 1825 575 / 575 Balance -23 / -23 312.83 / 312.83 Lab / Micro Data 09/15/25 04:51 09/15/25 04:51 Labs: Laboratory Results - last 24 hr 09/14/25 12:18: POC Glucose 130 H 09/15/25 04:51: WBC 18.7 H, RBC 3.82 L, Hgb 11.5 L, Hct 35.8 L, MCV 93.7, MCH 30.1, MCHC 32.1, RDW Std Deviation 46.4 H, RDW Coeff of Evangelista 13.7, Plt Count 322, MPV 10.4, Sodium 138, Potassium 4.1, Chloride 106, Carbon Dioxide 23.2, Anion Gap 9, BUN 11, Creatinine 0.70, Estim Creat Clear Calc 61.93, Est GFR (MDRD) Non-Af 95, BUN/Creatinine Ratio 15.9, Glucose 106 H, Calcium 8.4 Physical Exam Narrative Abdomen is soft, nondistended, nontender Urine is clear yellow in Patel catheter. Patel catheter was removed with deflation of the balloon. Vaginal packing removed and was dry. SCDs in place. 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
[2025-09-15 12:22] VITALS: BP 114/79; PULSE 80; RESP 18; TEMP 36.7; O2SAT 93
[2025-09-15 14:02] LABS: Hematocrit 35.9 % (37-47); Hemoglobin 11.7 g/dL (12.0-15.0)
[2025-09-15 15:20] VITALS: BP 135/78; PULSE 84; RESP 16; TEMP 36.5; O2SAT 94
== END 2025-09-15 15:24 | disposition home or self-care (01) ==
LOC: SDC 05:18 → AC 05:20 → MS3 10:18
PROVIDERS: Anesthesiology; Urology; PCP Student in an Organized Health Care Education/Training Program; Referring Provider Obstetrics & Gynecology; Visit Provider Obstetrics & Gynecology
PROC: (CPT 58260; principal; 2025-09-14 07:10)
DX: N81.3 Complete uterovaginal prolapse (principal); N95.2 Postmenopausal atrophic vaginitis; N84.0 Polyp of corpus uteri; D25.9 Leiomyoma of uterus, unspecified
CPT/HCPCS: 57282; 57260; 57267; 58262; 00942; 36415; 80048; 80053; 82962; 83735; 85014; 85018; 85027; 86850; 86900; 86901; 88307; 93005; 94668; C1762; C1758; J2405; J3475